=== PATIENT | female | born 1950 | race Caucasian/White ===

== ENCOUNTER → 2017-03-13 | Outpatient (CLI) | payer BC, MEDICARE, OTHER ==
[~2017-03-13] MED LIST: ACET-1966 PO; ALBU2.5V36 IH; AMA100 PO; AMLO-1 PO; AMLO-99 PO; AMOX-559 PO; ANTI-HYPERTENSIVE; ASPI81TA94 PO; BISA10SU RC; CEPH500C24 PO; CLON1PAT20 TOP; CLON1PAT23 TOP; DIPH0.5D12 IM; DOC100 PO; DOCU-416 PO; FLU IM; FLU180SY9 IM; FUR20 PO; FURO-45 PO; FURO20TA19 PO; GUALA600 PO; INSU100V24 SQ; IRO150 PO; LEV125 PO; LEVO-85 PO; LEVO137T23 PO; LEVO150T78 PO; LEVO25TA56 PO; LEVO25TA57 PO; LISI-368 PO; LISI20TA29 PO; METF-1 PO; METF-410 PO; METO-1 PO; METO25TA23 PO; METO50TA19 PO; MODA200T39 PO; MOM PO; MULT-885 PO; NYST15PO4 TP; PAN40 PO; PNEU0.5D3 IM; POLY17PO25 PO; POTA10CA61 PO; POTA20TA85 PO; POTT20 PO; SPIR25TA78 PO; SULF-198 PO; TRAM-420 PO; ZOS3.375P IV; [UNRECOGNIZED DRUG - CODE] IV; [UNRECOGNIZED DRUG - OTHER]
== END ==
LOC: LAB 15:47
PROVIDERS: ATTEND Internal Medicine
DX: I10 Essential (primary) hypertension (principal); E11.40 Type 2 diabetes mellitus with diabetic neuropathy, unspecified; E89.0 Postprocedural hypothyroidism
CPT/HCPCS: 36415; 82040; 82247; 82310; 82374; 82435; 82565; 82947; 83036; 84075; 84132; 84155; 84295; 84443; 84450; 84460; 84520

== ENCOUNTER → 2017-03-13 | Outpatient (CLI) | payer BC, MEDICARE, OTHER | LOC: LAB 15:35 | PROVIDERS: ATTEND Internal Medicine | DX: Z02.9 Encounter for administrative examinations, unspecified (principal) ==

== ENCOUNTER → 2017-07-18 | Outpatient (CLI) | payer BC, MEDICARE, OTHER ==
[~2017-07-18] MED LIST changes: -METF-410 PO; +METF-411 PO; +PNEI IJ
[2017-07-18 12:31] LABS: PLATELET COUNT, AUTOMATED 301 K/uL (150-450)
--- NOTE | 2017-07-18 13:03 | RADIOLOGY IMAGING REPORT ---
FACILITY: [facility] [place] PATIENT NAME: Etelvina Salazar : 1950 MR: [id number] V: [id number] EXAM DATE: ORDERING PHYSICIAN: RELL STONE TECHNOLOGIST: Location: [facility] - [place] Patient: Etelvina Salazar : 1950 Visit/Account:[id number] Date of Sevice: 07/18/2017 FOOT 3 VIEW RIGHT Indication: cellulitis Comparison: None. Findings: There is generalized osteopenia. The phalanges, metatarsal, and tarsal bones are intact. Soft tissues are normal. IMPRESSION: 1. No evidence of fracture or osteomyelitis. 2. Generalized osteopenia. Report Dictated By: Jaden Henry at 07/18/2017 12:59 PM Report E-Signed By: Jaden Henry at 07/18/2017 1:00 PM WSN:[email or web address]
== END ==
LOC: LAB 12:00
PROVIDERS: ATTEND Internal Medicine
DX: E78.5 Hyperlipidemia, unspecified (principal); I10 Essential (primary) hypertension; E11.40 Type 2 diabetes mellitus with diabetic neuropathy, unspecified; E03.9 Hypothyroidism, unspecified; M85.871 Other specified disorders of bone density and structure, right ankle and foot
CPT/HCPCS: 36415; 82040; 82247; 82310; 82374; 82435; 82465; 82565; 82947; 83036; 83718; 84075; 84132; 84155; 84295; 84443; 84450; 84460; 84478; 84520; 85025; 85651; 86140

== ENCOUNTER 2017-09-29 08:05 | Inpatient (IN) | payer BC, MEDICARE, OTHER ==
[~2017-09-29] VITALS: Ht 175.3 cm; Wt 127.0 kg
[2017-09-29] VITALS (40 sets, daily range): BP systolic 60–139; BP diastolic 40–111
[~2017-09-29 08:05] MED LIST changes: -LEVO750T27 PO; -MAGN400C PO; -OXYGENHOME INH; -SULF1TAB24 PO
[2017-09-29] MEDS ORDERED: NS(*) 0.9% 1000 ML BAG 1,000 ML IV ONE (08:25)
[2017-09-29] MEDS ORDERED: NS 0.9% IV ONE (08:30)
[2017-09-29 08:39] LABS: PLATELET COUNT, AUTOMATED 221 K/uL (150-450)
[2017-09-29 08:42] LABS: INR 1.08
--- NOTE | 2017-09-29 08:54 | ER Report ---
History and Physical Time Seen By MD: 08:30 Hx. of Stated Complaint: EMS STATES POSSIBLE STROKE AND HEART ATTACK HPI/ROS CHIEF COMPLAINT: altered mental status HISTORY OF PRESENT ILLNESS: Per and ems; pt was at baseline last night; at 0600 noted she was confused and less responsive. At 0700 he returned home from work and found that she appeared worse, and called ems. Per ems, but was hypotensive, tachycardic, complained of chest pain> EKG showed LBBB. Upon arrival, pt is without clear c/o as she is altered. Pt able to answer simple questions and denies cp, lopez, sob. REVIEW OF SYSTEMS: Complete review of systems not obtained as pt is altered Allergies: Coded Allergies: No Known Drug Allergies (Verified , 09/29/17) Home Meds Active Scripts Metoprolol Succinate (METOPROLOL SUCCINATE) 50 Mg Tab.er.24h, 1 TAB PO QDAY, # 90 TAB 0 Refills Prov:RELL STONE MD 09/02/17 Levothyroxine Sodium (LEVOTHYROXINE SODIUM) 150 Mcg Tablet, 1 TAB PO QDAY, #30 TAB 5 Refills Prov:RELL STONE MD 07/16/17 Metformin Hcl (METFORMIN HCL) 500 Mg Tablet, 1 TAB PO BID, #360 TAB 3 Refills Prov:RELL STONE MD 06/04/17 Lisinopril (LISINOPRIL) 20 Mg Tablet, 1 TAB PO BID, #180 TAB 3 Refills Prov:RELL STONE MD 11/20/16 Spironolactone (SPIRONOLACTONE) 25 Mg Tablet, 1 TAB PO QAM, #90 TAB 4 Refills Prov:RELL STONE MD 09/14/16 Amlodipine Besylate (AMLODIPINE BESYLATE) 10 Mg Tablet, 1 TAB PO QDAY, #90 TAB 4 Refills Prov:RELL STONE MD 09/14/16 Reported Medications Multivitamin (DAILY VITAMIN) 1 Each Tablet, 1 TAB PO DAILY 03/10/14 Discontinued Scripts Cephalexin Monohydrate (CEPHALEXIN) 500 Mg Cap, 1 CAP PO QID, #40 CAP 0 Refills Prov:RELL STONE MD 07/25/17 Reviewed Nurses Notes: Yes Old Medical Records Reviewed: Yes Hx Smoking: No Smoking Status: Never Smoker Exposure to Second Hand Smoke?: Yes ( quit in 1999) Hx Substance Use Disorder: No Hx Alcohol Use: No Constitutional Vital Sign - Last 24 Hours 09/29/17 09/29/17 08:15 08:15 Temp 97.8 Pulse 130 Resp 19 B/P (MAP) 88/58 Pulse Ox 92 O2 Delivery Room Air O2 Flow Rate 4.0 Intake and Output 09/29/17 09/29/17 09/30/17 15:00 23:00 07:00 Output Total 70 ml Balance -70 ml Physical Exam General Appearance: Patient is awake and answers simple questions; able to give name and month, follows some commands. She is protecting her airway Eyes: Pupils equal and round no pallor or injection. ENT, Mouth: mucous membranes are dry and covered with film Respiratory: There are no retractions, lungs are clear to auscultation. Cardiovascular: tachycardia + murmur Gastrointestinal: Abdomen is soft and non tender, no masses, bowel sounds normal. Neurological: pt follows commands erratically. She is awake, nurse informaticist finger but does not open/close eyes. Face symmetric though cannot follow cn commands. RUE 5 /5, LUE 4/5 (per this is baseline). Pt moves toes but cannot cloth picker legs; appears to be baseline Skin: skin is dry with petechiae lle, feet caked with feces and cat hair. mild erythema on buttocks and caseous discharge around perineum. No clear cellulitis Musculoskeletal: Neck is supple non tender. Psych - not suicidal DIFFERENTIAL DIAGNOSIS: After history and physical exam differential diagnosis was considered for adult fever including but not limited to viral syndromes including influenza, urinary tract infection, pneumonia and sepsis.chest pain including but not limited to myocardial ischemia, pericarditis pulmonary embolus , chest wall pain, pleural inflammation and pulmonary infectious causes.altered mental status including but not limited to hypoglycemia, infectious process, electrolyte abnormality, head injury and intoxicants. Findings c/w septic shock Medical Decision Making Data Points Result Diagram: 09/29/1713 09/29/17 0813 Laboratory Hematology Test 09/29/17 08:13 09/29/17 09:10 09/29/17 09:21 Red Blood Count 5.68 M/uL (4.17-5.56) Mean Corpuscular Volume 82.5 fL (80.0-96.0) Mean Corpuscular Hemoglobin 27.6 pg (26.0-33.0) Mean Corpuscular Hemoglobin Concent 33.4 g/dL (32.0-36.0) Red Cell Distribution Width 15.3 % (11.5-14.5) Mean Platelet Volume 9.5 fL (7.2-11.1) Neutrophils (%) (Auto) 97.6 % (39.4-72.5) Lymphocytes (%) (Auto) 1.5 % (17.6-49.6) Monocytes (%) (Auto) 0.6 % (4.1-12.4) Eosinophils (%) (Auto) 0.0 % (0.4-6.7) Basophils (%) (Auto) 0.3 % (0.3-1.4) Nucleated RBC Relative Count (auto) 0.1 /100WBC Neutrophils # (Auto) 15.9 K/uL (2.0-7.4) Lymphocytes # (Auto) 0.3 K/uL (1.3-3.6) Monocytes # (Auto) 0.1 K/uL (0.3-1.0) Eosinophils # (Auto) 0.0 K/uL (0.0-0.5) Basophils # (Auto) 0.1 K/uL (0.0-0.1) Nucleated RBC Absolute Count (auto) 0.01 K/uL Prothrombin Time 14.0 seconds (12.0-14.4) Prothromb Time International Ratio 1.08 Activated Partial Thromboplast Time 28 seconds (23-35) Sodium Level 141 mmol/L (137-145) Potassium Level 4.7 mmol/L (3.5-5.0) Chloride Level 102 mmol/L (98-107) Carbon Dioxide Level 22 mmol/L (22-31) Blood Urea Nitrogen 41 mg/dl (7-18) Creatinine 2.10 mg/dl (0.52-1.04) Glomerular Filtration Rate Calc 23.4 Random Glucose 178 mg/dl (75-110) Calcium Level 9.6 mg/dl (8.4-10.2) Total Bilirubin 0.7 mg/dl (0.2-1.3) Aspartate Amino Transf (AST/SGOT) 28 U/L (0-35) Alanine Aminotransferase (ALT/SGPT) 18 U/L (0-56) Alkaline Phosphatase 81 U/L (0-126) Troponin I 0.058 ng/ml Total Protein 7.6 g/dl (6.3-8.2) Albumin 4.3 g/dl (3.5-5.0) Blood Gas Puncture Site Right radial Blood Gas Patient Temperature 97.8 DEGREES Arterial Blood pH 7.44 (7.35-7.45) Arterial Blood Partial Pressure CO2 < 25 mmHg (32-37) Arterial Blood Partial Pressure O2 64 mmHg (60-80) Arterial Blood HCO3 15 mmol/L (20-26) Arterial Blood Oxygen Saturation 94 % (92-100) Arterial Blood Base Excess -9.0 mmol/L Isidoro Test Acceptable Oxygen Liters/Minute 4l Urine Color Yellow Urine Clarity Cloudy Urine pH 5.0 pH (4.8-9.5) Urine Specific [place] 1.014 Urine Protein 30 mg/dL (NEGATIVE) Urine Glucose (UA) Negative mg/dL (NEGATIVE) Urine Ketones Negative mg/dL (NEGATIVE) Urine Blood Moderate (NEGATIVE) Urine Nitrite Negative (NEGATIVE) Urine Bilirubin Negative (NEGATIVE) Urine Urobilinogen Negative mg/dL (0.2-1.9) Urine Leukocyte Esterase Large (NEGATIVE) Urine RBC 30 /HPF (0-2/HPF) Urine WBC 192 /HPF (0-5/HPF) Urine WBC Clumps Many /HPF Urine Squamous Epithelial Cells None /LPF (NONE-FEW) Urine Bacteria Many /HPF (NONE-FEW) Urine Hyaline Casts Few /LPF (NONE-FEW) Urine Mucus Few /HPF (NONE-FEW) Urine Opiates Screen Negative Urine Barbiturates Screen Negative Ur Tricyclic Antidepressants Screen Negative Urine Phencyclidine Screen Negative Urine Amphetamines Screen Negative Urine Benzodiazepines Screen Negative Urine Cocaine Screen Negative Urine Cannabinoids Screen Negative Chemistry Test 09/29/17 08:13 09/29/17 09:10 09/29/17 09:21 White Blood Count 16.4 k/uL (4.5-11.0) Red Blood Count 5.68 M/uL (4.17-5.56) Hemoglobin 15.7 g/dL (12.0-16.0) Hematocrit 46.8 % (34.0-47.0) Mean Corpuscular Volume 82.5 fL (80.0-96.0) Mean Corpuscular Hemoglobin 27.6 pg (26.0-33.0) Mean Corpuscular Hemoglobin Concent 33.4 g/dL (32.0-36.0) Red Cell Distribution Width 15.3 % (11.5-14.5) Platelet Count 221 K/uL (150-450) Mean Platelet Volume 9.5 fL (7.2-11.1) Neutrophils (%) (Auto) 97.6 % (39.4-72.5) Lymphocytes (%) (Auto) 1.5 % (17.6-49.6) Monocytes (%) (Auto) 0.6 % (4.1-12.4) Eosinophils (%) (Auto) 0.0 % (0.4-6.7) Basophils (%) (Auto) 0.3 % (0.3-1.4) Nucleated RBC Relative Count (auto) 0.1 /100WBC Neutrophils # (Auto) 15.9 K/uL (2.0-7.4) Lymphocytes # (Auto) 0.3 K/uL (1.3-3.6) Monocytes # (Auto) 0.1 K/uL (0.3-1.0) Eosinophils # (Auto) 0.0 K/uL (0.0-0.5) Basophils # (Auto) 0.1 K/uL (0.0-0.1) Nucleated RBC Absolute Count (auto) 0.01 K/uL Prothrombin Time 14.0 seconds (12.0-14.4) Prothromb Time International Ratio 1.08 Activated Partial Thromboplast Time 28 seconds (23-35) Glomerular Filtration Rate Calc 23.4 Calcium Level 9.6 mg/dl (8.4-10.2) Total Bilirubin 0.7 mg/dl (0.2-1.3) Aspartate Amino Transf (AST/SGOT) 28 U/L (0-35) Alanine Aminotransferase (ALT/SGPT) 18 U/L (0-56) Alkaline Phosphatase 81 U/L (0-126) Troponin I 0.058 ng/ml Total Protein 7.6 g/dl (6.3-8.2) Albumin 4.3 g/dl (3.5-5.0) Blood Gas Puncture Site Right radial Blood Gas Patient Temperature 97.8 DEGREES Arterial Blood pH 7.44 (7.35-7.45) Arterial Blood Partial Pressure CO2 < 25 mmHg (32-37) Arterial Blood Partial Pressure O2 64 mmHg (60-80) Arterial Blood HCO3 15 mmol/L (20-26) Arterial Blood Oxygen Saturation 94 % (92-100) Arterial Blood Base Excess -9.0 mmol/L Isidoro Test Acceptable Oxygen Liters/Minute 4l Urine Color Yellow Urine Clarity Cloudy Urine pH 5.0 pH (4.8-9.5) Urine Specific [place]hill 1.014 Urine Protein 30 mg/dL (NEGATIVE) Urine Glucose (UA) Negative mg/dL (NEGATIVE) Urine Ketones Negative mg/dL (NEGATIVE) Urine Blood Moderate (NEGATIVE) Urine Nitrite Negative (NEGATIVE) Urine Bilirubin Negative (NEGATIVE) Urine Urobilinogen Negative mg/dL (0.2-1.9) Urine Leukocyte Esterase Large (NEGATIVE) Urine RBC 30 /HPF (0-2/HPF) Urine WBC 192 /HPF (0-5/HPF) Urine WBC Clumps Many /HPF Urine Squamous Epithelial Cells None /LPF (NONE-FEW) Urine Bacteria Many /HPF (NONE-FEW) Urine Hyaline Casts Few /LPF (NONE-FEW) Urine Mucus Few /HPF (NONE-FEW) Urine Opiates Screen Negative Urine Barbiturates Screen Negative Ur Tricyclic Antidepressants Screen Negative Urine Phencyclidine Screen Negative Urine Amphetamines Screen Negative Urine Benzodiazepines Screen Negative Urine Cocaine Screen Negative Urine Cannabinoids Screen Negative Coagulation Test 09/29/17 08:13 Prothrombin Time 14.0 seconds Prothromb Time International Ratio 1.08 Activated Partial Thromboplast Time 28 seconds Toxicology Test 09/29/17 09:21 Urine Opiates Screen Negative Urine Barbiturates Screen Negative Ur Tricyclic Antidepressants Screen Negative Urine Phencyclidine Screen Negative Urine Amphetamines Screen Negative Urine Benzodiazepines Screen Negative Urine Cocaine Screen Negative Urine Cannabinoids Screen Negative Urinalysis Test 09/29/17 09:21 Urine Color Yellow Urine Clarity Cloudy Urine pH 5.0 pH (4.8-9.5) Urine Specific [place]hill 1.014 Urine Protein 30 mg/dL (NEGATIVE) Urine Glucose (UA) Negative mg/dL (NEGATIVE) Urine Ketones Negative mg/dL (NEGATIVE) Urine Blood Moderate (NEGATIVE) Urine Nitrite Negative (NEGATIVE) Urine Bilirubin Negative (NEGATIVE) Urine Urobilinogen Negative mg/dL (0.2-1.9) Urine Leukocyte Esterase Large (NEGATIVE) Urine RBC 30 /HPF (0-2/HPF) Urine WBC 192 /HPF (0-5/HPF) Urine WBC Clumps Many /HPF Urine Squamous Epithelial Cells None /LPF (NONE-FEW) Urine Bacteria Many /HPF (NONE-FEW) Urine Hyaline Casts Few /LPF (NONE-FEW) Urine Mucus Few /HPF (NONE-FEW) Microbiology Microbiology Date/Time Source Procedure Growth Status 09/29/17 09:04 Blood Peripheral Draw Blood Culture - Preliminary NO GROWTH SO FAR, SET LATE. REINCUBATED Resulted 09/29/17 08:27 Blood Peripheral Draw Blood Culture - Preliminary NO GROWTH SO FAR, SET LATE. REINCUBATED Resulted EKG/Imaging EKG Interpretation 12 lead EKG: Rhythm: sinus tachycardia [place]: left QRS: widened; lbbb ST segments: c/w lbbb; not dynamic and neg sgarbossa [ ] Monitor Interpretation: Sinus Tachycardia Imaging X-ray: [location] was obtained. I viewed the images myself on the PACS system. My interpretation of the images is: []. [The radiologist interpretation had no clinically significant variation from this interpretation]. ED Course/Re-evaluation ED Course Pt initially tachycardic, hypotensive; begins to respond with initial fluid bolus; 30cc/kg ordered. Pt with increasing alertness after first liter. Septic shock most likely; note that trop is elevated but given renal insufficiency and baseline lbbb without sgarbossa, this is more likely demand. CT head without e/ o ich; considered new cva but focal findings appear to be baseline. IV abx initiated; will admit to icu and consider pressors if pt again becomes hypotensive. Pt's pulse improves from 150's to 100's on 3rd liter; MAP 60 on reassessment, though with persistent borderline systolic hypotension. Admitted prior to 3 hr lactate level. Cefipime and vanc admin in ED. Of note, pt with minimal urine output in ED; likely sig dehydration, darrick. HD imprving on admission to ICU Decision to Disposition Date: Sep 29, 2017 Decision to Disposition Time: 09:22 Critical Care Time I spent a total of 65 minutes of critical care time in obtaining history, performing a physical exam, bedside monitoring of interventions, collecting and interpreting tests and discussion with consultants but not including time spent performing procedures. Depart Departure Latest Vital Signs Vital Signs Date Time Temp Pulse Resp B/P (MAP) Pulse Ox O2 Delivery O2 Flow Rate FiO2 09/29/17 08:15 4.0 09/29/17 08:15 97.8 130 19 88/58 92 Room Air Impression: Primary Impression: Septic shock Additional Impression: Altered mental status Condition: Critical Disposition: Admitted from ER Referrals: RELL STONE MD (PCP) Problem Qualifiers Additional Impression: Altered mental status Altered mental status type: delirium Qualified Codes: R41.0 - Disorientation , unspecified NATASHA GONZALEZ MD Sep 29, 2017 08:54
[2017-09-29] MEDS ORDERED: CEFEPIME HCL 2 GM VIAL 2 GM in NS(*) 0.9% 100 ML ADDVANT BAG 100 ML IVPB ONE (09:00)
[2017-09-29] MEDS ORDERED: VANCOMYCIN 1 GM VIAL IV ONE (09:00)
--- NOTE | 2017-09-29 09:35 | RADIOLOGY IMAGING REPORT ---
FACILITY: [facility] [place] PATIENT NAME: Etelvina Salazar : 1950 MR: [id number] V: [id number] EXAM DATE: ORDERING PHYSICIAN: NATASHA GONZALEZ TECHNOLOGIST: Location: [facility] [place] Patient: Etelvina Salazar : 1950 Visit/Account:[id number] Date of Sevice: 09/29/2017 CHEST SINGLE AP HISTORY: chest pain COMPARISON: 01/25/2012 FINDINGS: Cardiomediastinal contours: Mildly enlarged but unchanged. Lungs and pleura: Mild bronchovascular prominence without overt edema. Bones/soft tissues: Normal Other findings: None significant IMPRESSION: 1. Mild bronchovascular prominence without overt edema or consolidation. Report Dictated By: Bill Alegre MD at 09/29/2017 9:30 AM Report E-Signed By: Bill Alegre MD at 09/29/2017 9:31 AM WSN:[id number]
--- NOTE | 2017-09-29 09:41 | RADIOLOGY IMAGING REPORT ---
FACILITY: [facility] - [place] PATIENT NAME: Etelvina Salazar : 1950 MR: [id number] V: [id number] EXAM DATE: ORDERING PHYSICIAN: NATASHA GONZALEZ TECHNOLOGIST: Location: [facility] Patient: Etelvina Salazar : 1950 Visit/Account:[id number] Date of Sevice: 09/29/2017 HEAD W/O CONTRAST HISTORY: altered mental status COMPARISON STUDIES: Head CT 10/11/2012 TECHNIQUE: Contiguous axial images were obtained from the skull base to the vertex. One of the Cook Taste Eat dose optimization techniques was utilized in the performance of this exam: automated exposure co ntrol; adjustment of the mA and/or kv according to patient size; or use of iterative reconstruction t echnique. Specific details can be referenced in the facility's radiology CT exam operational policy. FINDINGS: There is motion on the initial images with images repeated at the convexity. Hemorrhage: Negative Ventricles / sulci / fissures: Negative Masses / midline shift: Negative White matter: Extensive periventricular low-attenuation, mildly advanced. Right basal ganglia lacunar infarct measures CSF attenuation. Foster-white differentiation: Negative Vessels: Extensive calcification of the major intracranial vessels at the skull base as well as the r ight MCA distribution, little changed. Extra-axial spaces: Negative Bones/skull base: Negative Visualized mastoid air cells / paranasal sinuses: Negative Scalp and soft tissues: Negative. Other findings: None significant IMPRESSION: 1. Advancing extensive periventricular low-attenuation likely secondary to small vessel disease. 2. Chronic right basal ganglial lacunar infarct. 3. Extensive calcification of the major intracranial vessels at the skull base and right MCA distribu tion, little changed. Report Dictated By: Bill Alegre MD at 09/29/2017 9:32 AM Report E-Signed By: Bill Alegre MD at 09/29/2017 9:38 AM WSN:[id number]
--- NOTE | 2017-09-29 09:51 | EKG ---
FACILITY: [facility] [place]IENT NAME: SHYAM ROBERT : [id number] MR: [id number] V: [id number] EXAM DATE: ORDERING PHYSICIAN: NATASHA GONZALEZ TECHNOLOGIST: Test Reason : Blood Pressure : / mmHG Vent. Rate : 135 BPM Atrial Rate : 136 BPM P-R Int : 000 ms QRS Dur : 134 ms QT Int : 368 ms P-R-T Axes : 000 -56 103 degrees QTc Int : 552 ms Sinus tachycardia with Possible premature atrial complexes with aberrant conduction Left axis deviation Left bundle branch block Abnormal ECG When compared with ECG of 11-OCT-2012 16:57, Sinus rhythm has replaced Junctional rhythm Vent. rate has increased BY 61 BPM Left bundle branch block is now present Confirmed by EROS PRICE ([id number]) on 09/29/2017 9:27:45 PM Referred By: Confirmed By:EROS PRICE
[2017-09-29] MEDS ORDERED: VANCOMYCIN(*) 1 GM VIAL 2 GM in NS(*) 0.9% 250 ML BAG 250 ML IVPB ONE (10:10)
[2017-09-29] MEDS ORDERED: ACETAMINOPHEN 325 MG TAB PO PRN (12:00)
[2017-09-29] MEDS ORDERED: INFLUENZA VIRUS VAC 0.5 ML SYR IM ONLY ONE (12:00)
--- NOTE | 2017-09-29 13:32 | Medical Nutrition Therapy ---
Nutrition Anthropometrics Height (Inches): 65 Weight (Pounds): 287 Weight (Calculated Kilograms): 130.408 Peña Nutrition Score: Peña Nutrition Risk Score: Dietary Referral Nutrition Risk Factors: Nutrition Risk Comment: Physical Findings Physical Appearance: Not able to calculate d/t lack of HT Skin Appearance Skin Appearance: Edema Edema Location Modifier: Both Edema Location: Lower Extremity Type of Edema: Degree of Edema: 2+ Gastrointestinal Symptoms GI Symtoms: Tube Present: Bowel Sounds: Recent Bowel Pattern: Stool Characteristics: Nutrition/Food History No Significant Nutr. HX Nutritional Diagnosis Nutritional Risk Acuity 2: Sepsis Nutritional Risk Acuity 3: Morbid Obesity Past Medical History: T2DM. HTN, Hypothyroid, Depression Nutritional Acuity: 2-Moderate Nutrition Diagnosis: Over-weight/Obesity Nutrition Etiology: Psychological Issues, Physiological Causes Nutrition Problem/Etiology/Sym: Overweight/Obesity related to Physical inactivity, depression, hypothryroid AEB current wt ot 130.408 Kg. Energy Requirement: 2074 (Sarkar Haskins Adj REE X 1.5) Protein Requirement: 57 (IBW Kg X 1.0) Fluid Requirement: 2074 Nutrition Intervention: Cont diet as ordered, Check glucose, Obtain Height and Weight Nutrition Monitoring & Eval Nutrition Goals: Eat 50-100% Meal RD Patient Assessment Time: [address] Assessment Type: RD Assessment Patient Nutrition Acuity: 2-Moderate Follow Up Date: Oct 01, 2017 Nutritional Comment: 09/29 Pt admitted for altered mental status and sepic shock. WBC 16.4, Lactate 4.3, Glu 178, High BUN/CREAT. Lispro SSI. Not able to evaluate wt status d/t lack of HT, however WT of 130.408 KG probably indicates overwt/obesity. Receiving Diabetes diet with no reports of intake. Follow intake, labs, HT, etc. -RICO DUTTON Sep 29, 2017 13:32
[2017-09-29] MEDS: NS(*) 0.9% 1000 ML BAG 1,000 ML IV PRN ×2 (13:55→22:48)
--- NOTE | 2017-09-29 14:59 | History & Physical ---
History of Present Illness Chief Complaint Mental status change. History of Present Illness The patient is a 66 year old female with PMH significant for past hemorrhagic stroke, DM II and HTN who presents with mental status changes this am. The patient's states she was in her usual state of health yesterday. She has been seeing her PCP, Dr. Corrales, for management of infection in her right great toe, but that has not gotten any worse per the patient and her family. She has been taking Keflex for the R great toe infection. This am the patient was very weak and confused. She had a shaking chill at home. She usually is able to walk short distances with her walker. EMS was called and the patient could barely stand to transfer to a gurney. She was brought to [facility] ER and was hypotensive and tachycardic. She was felt to be septic and was given Cefepime, Vanco, and IV fluid resuscitation. Upon arrival to ICU, the patient's mental status is much improved. She states she has had burning with urination for several days. She complains of R flank pain and some R abdominal pain as well. The patient also notes she was bitten by her dog in her L lower leg recently when trying to break up a fight between dogs. That area is not painful, red or draining per her report. The patient's family notes she does not drink enough fluids and will only drink coffee. She last saw Dr. Corrales about a week ago but was not having urinary symptoms at that time. History Problems: (1) Hx of myocardial infarction Status: Resolved (2) Controlled type 2 diabetes mellitus with diabetic neuropathy, without long- term current use of insulin Status: Chronic (3) Edema Status: Chronic (4) Essential hypertension Status: Chronic (5) Obstructive sleep apnea Status: Chronic (6) Nontraumatic rupture of Achilles tendon Status: Resolved (7) Postsurgical hypothyroidism Status: Chronic (8) Personal history of malignant neoplasm of thyroid Status: Resolved (9) Morbid obesity Status: Chronic (10) Cellulitis of great toe, right Status: Chronic (11) Urinary tract infection Status: Acute (12) History of cerebral hemorrhage Status: Resolved Comment: CT 06/11 shows cerebral hemorrhage. Home Meds Active Scripts Metoprolol Succinate (METOPROLOL SUCCINATE) 50 Mg Tab.er.24h, 1 TAB PO QDAY, # 90 TAB 0 Refills Prov:RELL CORRALES MD 09/02/17 Levothyroxine Sodium (LEVOTHYROXINE SODIUM) 150 Mcg Tablet, 1 TAB PO QDAY, #30 TAB 5 Refills Prov:RELL CORRALES MD 07/16/17 Metformin Hcl (METFORMIN HCL) 500 Mg Tablet, 1 TAB PO BID, #360 TAB 3 Refills Prov:RELL CORRALES MD 06/04/17 Lisinopril (LISINOPRIL) 20 Mg Tablet, 1 TAB PO BID, #180 TAB 3 Refills Prov:RELL CORRALES MD 11/20/16 Spironolactone (SPIRONOLACTONE) 25 Mg Tablet, 1 TAB PO QAM, #90 TAB 4 Refills Prov:RELL CORRALES MD 09/14/16 Amlodipine Besylate (AMLODIPINE BESYLATE) 10 Mg Tablet, 1 TAB PO QDAY, #90 TAB 4 Refills Prov:RELL CORRALES MD 09/14/16 Reported Medications Multivitamin (DAILY VITAMIN) 1 Each Tablet, 1 TAB PO DAILY 03/10/14 Discontinued Scripts Cephalexin Monohydrate (CEPHALEXIN) 500 Mg Cap, 1 CAP PO QID, #40 CAP 0 Refills Prov:RELL CORRALES MD 07/25/17 Allergies: Coded Allergies: No Known Drug Allergies (Verified , 09/29/17) Patient History: FH: breast cancer FATHER, , Age:55 Maternal Grandmother, , Age:92 FH: coronary artery disease FATHER, , Age:55 FH: hypertension Paternal Grandmother FHx: diabetes mellitus Maternal Grandmother, , Age:92 Other Social/Family Hx The patient is and lives at home with her . She is retired and previously worked at the [employer]. Hx Smoking: No Smoking Status: Never Smoker Exposure to Second Hand Smoke?: Yes ( quit in 1999) Caffeine Intake: Coffee Caffeine/Cups Per Day: Daily Hx Alcohol Use: No Hx Substance Use Disorder: No History of IV Drug Use: No Review of Systems Constitutional: Chills Neurological: Confusion, Weakness, Other (Some difficulty with memory since stroke.) Eyes: No Vision Change ENT: No Hearing Loss Cardiovascular: No Chest Pain Respiratory: Cough, No Shortness of Breath Gastrointestinal: No Nausea, Abdominal Pain Genitourinary: Dysuria Psychiatric: Depression Exam Vital Signs Vital Signs Date Time Temp Pulse Resp B/P (MAP) Pulse Ox O2 Delivery O2 Flow Rate FiO2 09/29/17 13:15 95 28 111/61 (78) 90 Nasal Cannula 3.0 09/29/17 12:00 99.8 General Appearance: Alert, Awake, No Acute Distress Neuro: Other (Poor short term memory.) Eyes: PERRLA Cardiovascular: Regular Rate and Rhythm, Other (1+ edema bilaterally) Respiratory: Other (L basilar crackles, otherwise clear) GI: Other (Tender in the R mid to upper abdomen to palpation. ) Lymph: Cervical Nodes Benign Extremities: Warm, Perfused Integumentary: Scaly / Dry Skin, Other (R great toe and distal foot with scaling of skin, redness and great toe has dystrophic nail. R great toe is swollen. No obvious drainage visible. L lower leg with chronic venous stasis changes. Several wounds noted without redness or drainage. ) Psych: Appropriate Mood & Affect Medical Decision Making Data Points Result Diagram: 09/29/17 0809/29/17 0813 Item Value Date Time Blood Gas Puncture Site Right radial 09/29/17 0910 Blood Gas Patient Temperature 97.8 DEGREES 09/29/17 0910 Arterial Blood pH 7.44 09/29/17 0910 Arterial Blood Partial Pressure CO2 < 25 mmHg L 09/29/17 0910 Arterial Blood Partial Pressure O2 64 mmHg 09/29/17 0910 Arterial Blood HCO3 15 mmol/L L 09/29/17 0910 Arterial Blood Oxygen Saturation 94 % 09/29/17 0910 Arterial Blood Base Excess -9.0 mmol/L 09/29/17 0910 Isidoro Test Acceptable 09/29/17 0910 Oxygen Liters/Minute 4l 09/29/17 0910 Prothrombin Time 14.0 seconds 09/29/17 0813 Prothromb Time International Ratio 1.08 09/29/17 0813 Activated Partial Thromboplast Time 28 seconds 09/29/17 0813 Random Glucose 178 mg/dl H 09/29/17 0813 Calcium Level 9.6 mg/dl 09/29/17 0813 Total Bilirubin 0.7 mg/dl 09/29/17 0813 Aspartate Amino Transf (AST/SGOT) 28 U/L 09/29/17 0813 Alanine Aminotransferase (ALT/SGPT) 18 U/L 09/29/17 0813 Alkaline Phosphatase 81 U/L 09/29/17 0813 Troponin I 0.058 ng/ml 09/29/17 0813 Total Protein 7.6 g/dl 09/29/17 0813 Albumin 4.3 g/dl 09/29/17 0813 Lactate 6.4 mmol/L *H 09/29/17 0827 Lactate 4.3 mmol/L *H 09/29/17 1132 Urine Opiates Screen Negative 09/29/17920 Urine Barbiturates Screen Negative 09/29/17 09 Ur Tricyclic Antidepressants Screen Negative 09/29/17 09 Urine Phencyclidine Screen Negative 09/29/17920 Urine Amphetamines Screen Negative 09/29/17920 Urine Benzodiazepines Screen Negative 09/29/17920 Urine Cocaine Screen Negative 09/29/17920 Urine Cannabinoids Screen Negative 09/29/17920 Urine Color Yellow 09/29/17920 Urine Clarity Cloudy 09/29/17920 Urine pH 5.0 pH 09/29/17920 Urine Specific Hulbert 1.014 09/29/17920 Urine Protein 30 mg/dL 09/29/17920 Urine Glucose (UA) Negative mg/dL 09/29/17920 Urine Ketones Negative mg/dL 09/29/17920 Urine Blood Moderate 09/29/17920 Urine Nitrite Negative 09/29/17920 Urine Bilirubin Negative 09/29/17920 Urine Urobilinogen Negative mg/dL 09/29/17 09 Urine Leukocyte Esterase Large H 09/29/17920 Urine RBC 30 /HPF 09/29/17920 Urine WBC 192 /HPF 09/29/17920 Urine WBC Clumps Many /HPF 09/29/17 0921 Urine Squamous Epithelial Cells None /LPF 09/29/17 09 Urine Bacteria Many /HPF H 09/29/17920 Urine Hyaline Casts Few /LPF 09/29/17920 Urine Mucus Few /HPF 09/29/17920 EKG / Imaging EKG Interpretation FACILITY: [facility] [place] PATIENT NAME: SHYAM ROBERT : [id number] MR: [id number] V: [id number] EXAM DATE: ORDERING PHYSICIAN: NATASHA GONZALEZ TECHNOLOGIST: Test Reason : Blood Pressure : / mmHG Vent. Rate : 135 BPM Atrial Rate : 136 BPM P-R Int : 000 ms QRS Dur : 134 ms QT Int : 368 ms P-R-T Axes : 000 -56 103 degrees QTc Int : 552 ms Sinus tachycardia with Possible premature atrial complexes with aberrant conduction Left axis deviation Left bundle branch block Abnormal ECG When compared with ECG of 11-OCT-2012 16:57, Sinus rhythm has replaced Junctional rhythm Vent. rate has increased BY 61 BPM Left bundle branch block is now present Referred By: Confirmed By: 9 T: Imaging FACILITY: [facility] [place] PATIENT NAME: Shyam Robert : 1950 MR: [id number] V: [id number] EXAM DATE: [id number] ORDERING PHYSICIAN: NATASHA GONZALEZ TECHNOLOGIST: Location: [facility] Patient: Shyam Robert : 1950 Visit/Account:[id number] Date of Sevice: 09/29/2017 HEAD W/O CONTRAST HISTORY: altered mental status COMPARISON STUDIES: Head CT 10/11/2012 TECHNIQUE: Contiguous axial images were obtained from the skull base to the vertex. One of the following dose optimization techniques was utilized in the performance of this exam: automated exposure control; adjustment of the mA and/ or kv according to patient size; or use of iterative reconstruction technique. Specific details can be referenced in the facility's radiology CT exam operational policy. FINDINGS: There is motion on the initial images with images repeated at the convexity. Hemorrhage: Negative Ventricles / sulci / fissures: Negative Masses / midline shift: Negative White matter: Extensive periventricular low-attenuation, mildly advanced. Right basal ganglia lacunar infarct measures CSF attenuation. Foster-white differentiation: Negative Vessels: Extensive calcification of the major intracranial vessels at the skull base as well as the right MCA distribution, little changed. Extra-axial spaces: Negative Bones/skull base: Negative Visualized mastoid air cells / paranasal sinuses: Negative Scalp and soft tissues: Negative. Other findings: None significant IMPRESSION: 1. Advancing extensive periventricular low-attenuation likely secondary to small vessel disease. 2. Chronic right basal ganglial lacunar infarct. 3. Extensive calcification of the major intracranial vessels at the skull base and right MCA distribution, little changed. Report Dictated By: Bill Alegre MD at 09/29/2017 9:32 AM Report E-Signed By: Bill Alegre MD at 09/29/2017 9:38 AM WSN:[id number] FACILITY: [facility] PATIENT NAME: Shyam Robert : 1950 MR: [id number] V: [id number] EXAM DATE: [id number] ORDERING PHYSICIAN: NATASHA GONZALEZ TECHNOLOGIST: Location: [facility] Patient: Shyam Robert : 1950 Visit/Account:[id number] Date of Sevice: 09/29/2017 CHEST SINGLE AP HISTORY: chest pain COMPARISON: 01/25/2012 FINDINGS: Cardiomediastinal contours: Mildly enlarged but unchanged. Lungs and pleura: Mild bronchovascular prominence without overt edema. Bones/soft tissues: Normal Other findings: None significant IMPRESSION: 1. Mild bronchovascular prominence without overt edema or consolidation. Report Dictated By: Bill Alegre MD at 09/29/2017 9:30 AM Report E-Signed By: Bill Alegre MD at 09/29/2017 9:31 AM WSN:[id number] Pre-Admit Course ED Medications Cefepime, Vanco, NS Medical Record Review: Yes Assessment and Plan Problems: (1) Septic shock Status: Acute Assessment & Plan: The patient was hypotensive, tachycardic and had an elevated lactate and mental status changes on presentation. She received a fluid bolus of 30ml/kg. Her repeat lactate improved but is still elevated. Will continue serial lactates. She received cefepime and vancomycin in the ER. These will be continued with renal dosing. Blood and urine cultures have been obtained. Her blood pressure has responded nicely to fluid resuscitation. Will continue IV fluids. (2) Urinary tract infection Status: Acute Assessment & Plan: UA shows pyuria and the patient has had dysuria and R flank pain as well as chills. Her last culture in 2012 grew Pseudomonas aeruginosa and Citrobacter freundii. Both were sensitive to cefepime at that time. She is currently on cefepime and vancomycin pending urine and blood culture results. (3) Cellulitis of great toe, right Status: Chronic Assessment & Plan: The patient has had a chronic infection in the R great toe since the beginning of the year. She had a foot x-ray in July that was negative for bony changes. She most recently has been on Keflex and is followed by Dr. Corrales. (4) Ulcer of other part of lower limb Status: Chronic Assessment & Plan: The patient has chronic venous stasis changes of the L lower leg. She has open wounds without redness or drainage currently. (5) History of cerebral hemorrhage Status: Resolved Assessment & Plan: The patient had a cerebral hemorrhage in June 2009. CT at that time showed "a large amount of intraventricular hemorrhage within the right lateral ventricle with extension into the left lateral ventricle as well as the third and fourth ventricles". The patient was transferred to [facility] at that time and was in a coma for several weeks. She then had extensive rehabilitation. 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 (6) Essential hypertension Status: Chronic Assessment & Plan: The patient takes lisinopril 20mg bid, amlodipine 10mg daily , metoprolol succinate 50mg daily and spironolactone 25mg daily at home. Will hold for now due to hypotension. (7) Controlled type 2 diabetes mellitus with diabetic neuropathy, without long- term current use of insulin Status: Chronic Assessment & Plan: The patient takes metformin 500mg po bid. Will hold for now and place on SSI level 2. Monitor glucoses AC/HS. (8) CAD (coronary artery disease) Status: Chronic Assessment & Plan: The patient has past history of [place]. Her most recent echo per the EMR was in 2012 and her EF was low normal at that time. She did have diastolic dysfunction, grade 2/4. Her initial troponin was in the equivocal range. Will repeat. Will hold her metoprolol for now and restart when able. She is not on anticoagulation due to history of massive cerebral hemorrhage in 2009. (9) Edema Status: Chronic Assessment & Plan: The patient takes spironolactone 25mg daily at home. Will hold for hypotension, dehydration. (10) Obstructive sleep apnea Status: Chronic Assessment & Plan: The patient states she wears O2 at HS. (11) Morbid obesity Status: Chronic Assessment & Plan: BMI is 42.4. Time Spent on Plan of Care: < 30 min Copies to: RELL CORRALES MD Venous Thromboembolism Antithrombotics Is Pt On Any Antithrombotics?: No Prophylaxis Tx Contraindicated Pharmacological Contraindicati: Medical Contraindication (Hx hemorrhagic CVA.) Exam Sepsis Risk: Severe Sepsis Risk Problem Qualifiers (1) Edema: Edema type: unspecified Qualified Codes: R60.9 - Edema, unspecified EROS VARELA MD Sep 29, 2017 14:59
[2017-09-29] MEDS ORDERED: FUROSEMIDE 20 MG/2 ML VIAL IVP ONE ×2 (17:25)
[2017-09-29] MEDS ORDERED: ALBUTEROL 2.5 MG/3 ML NEB NEB ONE (17:30)
[2017-09-29] MEDS ORDERED: ACETAMINOPHEN(*)1000 MG/100 ML 100 ML IVPB PRN (17:40)
[2017-09-29] MEDS ORDERED: LEVOFLOXACIN/D5W 750 MG/150 ML 150 ML IVPB SCH (17:45)
--- NOTE | 2017-09-29 17:57 | RADIOLOGY IMAGING REPORT ---
FACILITY: [facility] PATIENT NAME: Etelvina Salazar : 1950 MR: [id number] V: [id number] EXAM DATE: ORDERING PHYSICIAN: EROS VARELA TECHNOLOGIST: Location: [facility] Patient: Etelvina Salazar : 1950 Visit/Account:[id number] Date of Sevice: 09/29/2017 CHEST SINGLE AP Indication: Increased respiratory difficulty. Comparison: Radiograph from same date at 8:27 AM Findings: Heart size within normal limits. Calcification within the aortic knob. There is no focal infiltrate or lobar consolidation. Redemonstration of bronchovascular prominence without overt edema. No pneumothorax or pleural effusion. IMPRESSION: 1. No acute cardiopulmonary process. 2. Grossly unchanged bronchovascular prominence without overt edema. Report Dictated By: Noe Ortiz MD at 09/29/2017 5:51 PM Report E-Signed By: Noe Ortiz MD at 09/29/2017 5:52 PM WSN:[id number]
--- NOTE | 2017-09-29 18:02 | Miscellaneous Provider Note ---
Miscellaneous Provider Note Note Called to see patient with increased respirations and confusion. Patient is now tachycardic in the 130s. Also tachypneic into the 40s. BP 128/102. She is awake but does not answer questions. Rectal temperature measures over 106. Will give IV Tylenol and pack with ice. Dr. Espinal will place a central line for better IV access. She has received cefepime and Vancomycin IV today. Will add Levaquin as well. She has a history of Pseudomonas UTI in the past. CXR shows mild vascular prominence. She has received over 3 liters of fluid. Will give a small dose of Lasix as well. EROS VARELA MD Sep 29, 2017 18:02
--- NOTE | 2017-09-29 18:31 | EKG ---
FACILITY: [facility] [place] PATIENT NAME: SHYAM ROBERT : [id number] MR: [id number] V: [id number] EXAM DATE: ORDERING PHYSICIAN: EROS VARELA TECHNOLOGIST: Test Reason : Blood Pressure : / mmHG Vent. Rate : 137 BPM Atrial Rate : 131 BPM P-R Int : 000 ms QRS Dur : 130 ms QT Int : 314 ms P-R-T Axes : 000 -11 121 degrees QTc Int : 474 ms Sinus tachycardia Left bundle branch block Left axis deviation Abnormal ECG No previous ECGs available Confirmed by EROS PRICE ([id number]) on 09/29/2017 9:25:44 PM Referred By: Confirmed By:EROS PRICE
[2017-09-29] MEDS: NS(*) 0.9% 500 ML BAG 500 ML IV PRN ×2 (18:39→18:45)
--- NOTE | 2017-09-29 18:47 | General Surgery Consultation ---
History of Present Illness Requesting Physician Dr. Samantha Bergeron Reason for Consult Urosepsis with septic shock and impending MODS, need for central venous access and arterial line. Chief Complaint AMS and high fever History of Present Illness This 66 year old female was admitted today with urosepsis and has developed respiratory failure and oliguria. History Problems: (1) Controlled type 2 diabetes mellitus with diabetic neuropathy, without long- term current use of insulin Status: Chronic (2) Essential hypertension Status: Chronic (3) Obstructive sleep apnea Status: Chronic (4) Postsurgical hypothyroidism Status: Chronic (5) Morbid obesity Status: Chronic (6) Unspecified cerebral artery occlusion with cerebral infarction Status: Acute (7) History of cerebral hemorrhage Status: Resolved Home Meds Active Scripts Metoprolol Succinate (METOPROLOL SUCCINATE) 50 Mg Tab.er.24h, 1 TAB PO QDAY, # 90 TAB 0 Refills Prov:RELL STONE MD 09/02/17 Levothyroxine Sodium (LEVOTHYROXINE SODIUM) 150 Mcg Tablet, 1 TAB PO QDAY, #30 TAB 5 Refills Prov:RELL STONE MD 07/16/17 Metformin Hcl (METFORMIN HCL) 500 Mg Tablet, 1 TAB PO BID, #360 TAB 3 Refills Prov:RELL STONE MD 06/04/17 Lisinopril (LISINOPRIL) 20 Mg Tablet, 1 TAB PO BID, #180 TAB 3 Refills Prov:RELL STONE MD 11/20/16 Spironolactone (SPIRONOLACTONE) 25 Mg Tablet, 1 TAB PO QAM, #90 TAB 4 Refills Prov:RELL STONE MD 09/14/16 Amlodipine Besylate (AMLODIPINE BESYLATE) 10 Mg Tablet, 1 TAB PO QDAY, #90 TAB 4 Refills Prov:RELL STONE MD 09/14/16 Reported Medications Multivitamin (DAILY VITAMIN) 1 Each Tablet, 1 TAB PO DAILY 03/10/14 Discontinued Scripts Cephalexin Monohydrate (CEPHALEXIN) 500 Mg Cap, 1 CAP PO QID, #40 CAP 0 Refills Prov:RELL STONE MD 07/25/17 Allergies: Coded Allergies: No Known Drug Allergies (Verified , 09/29/17) Family History: FH: breast cancer FATHER, , Age:55 Maternal Grandmother, , Age:92 FH: coronary artery disease FATHER, , Age:55 FH: hypertension Paternal Grandmother FHx: diabetes mellitus Maternal Grandmother, , Age:92 Review of Systems Other Unable to obtain due to obtundation Exam Vital Signs Vital Signs Date Time Temp Pulse Resp B/P (MAP) Pulse Ox O2 Delivery O2 Flow Rate FiO2 09/29/17 18:19 125 36 09/29/17 18:10 93 Nasal Cannula 3.0 09/29/17 16:00 121/72 (88) 09/29/17 15:00 100.5 General Appearance: Other (obtunded, obese female tachypneic and tachycardic) Neuro: No Gross deficits (GCS 11) ENT: Moist Mucous Membranes Cardiovascular: No JVD, Other (Regular rhythm, tachycardic at 130) Respiratory: Other (clear but decreased in both bases) GI: Abd Soft and Non-Tender Extremities: Other (stasis dermatitis and chronic edema) Medical Decision Making Data Points Result Diagram: 09/29/17 0813 09/29/17 0813 Venous Thromboembolism Antithrombotics Is Pt On Any Antithrombotics?: No ELISA GUIDO MD Sep 29, 2017 18:47
--- NOTE | 2017-09-29 18:49 | Procedure Note ---
ART Line Procedure Note Consent Signed: No ART Line Indication: Hemodynamic Monitoring ART Line Lumen: Single Line Procedure: Chlorhexidine Prep, Sterile Drapes Applied Anesthesia Used: 1% Lidocaine CC's of Anesthesia: 1 Complications: None Comment Left radial arterial line single puncture. Good wave form. Secured with Tegaderm and tape. ELISA GUIDO MD Sep 29, 2017 18:49
--- NOTE | 2017-09-29 18:50 | Procedure Note ---
Central Line Procedure Note Consent Signed: No Central Line Lumen: Triple Central Line Procedure: Chlorhexidine Prep, Sterile Drapes Applied Central Line Position: L Subclavian Anesthesia Used: 1% Lidocaine CC's of Anesthesia: 3 Complications: None Central Line Post Position: Sutured, Confirmed Blood Return, Position Confirmed w/CXR ELISA GUIDO MD Sep 29, 2017 18:50
--- NOTE | 2017-09-29 18:56 | RADIOLOGY IMAGING REPORT ---
[place] [facility] [place] Etelvina Salazar : 1950 MR: [id number] V: [id number] EXAM DATE: ORDERING PHYSICIAN: ELISA GUIDO TECHNOLOGIST: Location: [facility] [place] Patient: Etelvina Salazar : 1950 Visit/Account:[id number] Date of Sevice: 09/29/2017 Examination: CHEST SINGLE AP Comparison: Same day and earlier. History: Central line placement Findings: Left subclavian central venous catheter with the tip in the region of the superior cavoatri al junction. Cardiac and hilar contour is mildly enlarged but unchanged. Pulmonary vascular congestio n but no pulmonary edema. No new or enlarging consolidation. No pneumothorax or effusion. Osseous str uctures are intact. IMPRESSION: Left subclavian central venous catheter. No pneumothorax. Report Dictated By: Jonathan Elkins MD at 09/29/2017 6:48 PM Report E-Signed By: Jonathan Elkins MD at 09/29/2017 6:53 PM WSN:[id number]
[2017-09-29] MEDS ORDERED: NOREPINEPH BITAR 4 MG/4 ML AMP ONE (18:58)
[2017-09-29] MEDS ORDERED: LEVOPHED KIT (*) 1 IVSOL 0 KIT IV ONE (18:59)
[2017-09-29] MEDS ORDERED: metroNIDAZOLE* 500MG/100ML BAG 100 ML IVPB SCH (20:15)
[2017-09-29] MEDS: LEVOFLOXACIN/D5W 750 MG/150 ML 150 ML IVPB SCH (20:19)
[2017-09-29] MEDS: NOREPINE BITAR* 4 MG/4 ML AMP 8 MG in D5W(*) 500 ML BAG 492 ML IV PRN (20:22)
--- NOTE | 2017-09-29 20:29 | Miscellaneous Provider Note ---
Miscellaneous Provider Note Note Patient with drop in blood pressure. CVP 2. Fluid bolus given. Levaphed added. 2 anaerobic blood cultures growing a gram positive coccobacillus. Flagyl added. Will CT abdomen/pelvis. EROS VARELA MD Sep 29, 2017 20:28
[2017-09-29] MEDS ORDERED: NS(*) 0.9% 100 ML BAG 100 ML ONE (21:31)
--- NOTE | 2017-09-29 21:45 | RADIOLOGY IMAGING REPORT ---
FACILITY: [facility] PATIENT NAME: Etelvina Salazar : 1950 MR: [id number] V: [id number] EXAM DATE: ORDERING PHYSICIAN: EROS VARELA TECHNOLOGIST: Location: [facility] Patient: Etelvina Salazar : 1950 Visit/Account:[id number] Date of Sevice: 09/29/2017 EXAMINATION: CT abdomen and pelvis without IV contrast HISTORY: Sepsis. Abdominal pain. TECHNIQUE: Axial CT images of the abdomen and pelvis were obtained without IV contrast, with color[place] l and sagittal 2D reconstructed images. One of the following dose optimization techniques was utilized in the performance of this exam: Autom ated exposure control; adjustment of the mA and/or kV according to the patient's size; or use of an i terative reconstruction technique. Specific details can be referenced in the facility's radiology C T exam operational policy. COMPARISON: None. FINDINGS: Evaluation of the solid and viscus parenchymal organs is limited without the benefit of IV contrast. Image quality is also degraded by patient motion artifact. Liver: Negative. Gallbladder and bile ducts: Cholelithiasis, with small stones layering in the dependent gallbladder. No bile duct dilatation. Spleen: Negative. Pancreas: Negative. Adrenal glands: Negative. Kidneys: Moderate hydronephrosis of the right kidney, with dilatation of the right ureter. There is a 4 mm stone present in the distal right ureter at the UVJ. Additional nonobstructing 8 mm calculus i n the lower pole of the right kidney. Perinephric stranding surrounds the right kidney. Small nonobstructing left renal calculus measuring 2 mm. The left kidney is negative for hydronephros is. Bowel and peritoneum: The small bowel and colon are normal in caliber. No bowel obstruction. No free fluid or free intraperitoneal air. Small hiatal hernia. Pelvic structures: The urinary bladder is decompressed, with Bah catheter in place. Lymph node assessment: Negative. Vessels: Moderate vascular calcifications. Normal caliber abdominal aorta. Musculoskeletal: Scattered degenerative changes throughout the spine. No acute osseous findings. Body wall: Small fat-containing umbilical hernia. Lung bases: Mild atelectasis in the lower lungs. IMPRESSION: 1. Moderate hydronephrosis the right kidney. There is a 4 mm calculus in the distal right ureter at t he UVJ. 2. Additional nonobstructing renal calculi in both kidneys. 3. No other acute intra-abdominal findings by noncontrast CT imaging. 4. Cholelithiasis. Report Dictated By: Dimas Way MD at 09/29/2017 9:21 PM Report E-Signed By: Dimas Way MD at 09/29/2017 9:41 PM WSN:[id number]
[2017-09-29] MEDS: CEFEPIME HCL 2 GM VIAL IVP SCH (21:52)
[2017-09-29] MEDS ORDERED: HYDROCORTISONE 100 MG/2 ML IVP ONE (22:05)
[2017-09-29] MEDS ORDERED: NS(*) 0.9% 1000 ML BAG 1,000 ML IV PRN (22:49)
[2017-09-29] MEDS: metroNIDAZOLE* 500MG/100ML BAG 100 ML IVPB SCH (23:48)
[2017-09-30] VITALS (90 sets, daily range): BP systolic 80–138; BP diastolic 43–104
[2017-09-30] MEDS: NOREPINE BITAR* 4 MG/4 ML AMP 8 MG in D5W(*) 500 ML BAG 492 ML IV PRN ×2 (01:44→06:42)
[2017-09-30 05:43] LABS: PLATELET COUNT, AUTOMATED 133 K/uL (150-450)
[2017-09-30] MEDS: metroNIDAZOLE* 500MG/100ML BAG 100 ML IVPB SCH (06:10)
[2017-09-30] MEDS ORDERED: NS(*) 0.9% 1000 ML BAG 1,000 ML IV PRN (06:34)
[2017-09-30] MEDS ORDERED: VANCOMYCIN(*) 1 GM VIAL 2 GM, VANCOMYCIN (*) 0.5 GM VIAL 0.5 GM in NS(*) 0.9% 500 ML BA... IVPB ONE ×2 (07:00→07:10)
[2017-09-30] MEDS ORDERED: PROPOFOL EMUL(*) 10MG/ML 20 ML 20 ML ONE (07:47)
[2017-09-30] MEDS ORDERED: ONDANSETRON 4 MG/2 ML VIAL ONE (07:47)
[2017-09-30] MEDS ORDERED: LIDOCAINE MPF 1% 5 ML VIAL ONE (07:47)
[2017-09-30] MEDS ORDERED: DEXAMETHASONE SOD 4 MG/ML VIAL ONE (07:47)
[2017-09-30] MEDS ORDERED: fentaNYL CITR 100 MCG/2 ML AMP ONE (07:47)
[2017-09-30] MEDS ORDERED: KETAMINE HCL 500 MG/10 ML VIAL ONE (07:49)
[2017-09-30] MEDS ORDERED: NORMOSOL R SOLN(*) 1000 ML BAG 1,000 ML IV PRN (07:50)
[2017-09-30] MEDS ORDERED: NS 0.9% 20 ML SDV 40 ML ONE (08:00)
[2017-09-30] MEDS ORDERED: IOPAMIDOL-200 50 ML VIAL IS ONE (08:07)
[2017-09-30] MEDS: PANTOPRAZOLE SOD 40 MG IV VIAL IVP SCH (08:18)
[2017-09-30] MEDS ORDERED: ENOXAPARIN 40 MG/0.4ML SYR SC SCH (09:00)
--- NOTE | 2017-09-30 10:34 | Hospitalist Progress Note ---
Subjective Progress Notes Subjective This patient was admitted for sepsis. She had increased fever and hypotension overnight. Patient Complains of: Cardiovascular: No: Chest Pain Respiratory: No: Shortness of Breath Physical Exam Vital Signs Date Time Temp Pulse Resp B/P (MAP) Pulse Ox O2 Delivery O2 Flow Rate FiO2 09/30/17 07:28 90 Nasal Cannula 3.0 09/30/17 06:45 98.2 91 38 124/73 (90) Neuro: No Gross deficits Eyes: PERRLA Cardiovascular: Regular Rate and Rhythm Respiratory: Clear to Auscultation GI: Soft and Non-Tender Extremities: No Edema Integumentary: No Cyanosis Result Diagram: 09/30/1752409/30/17 05 Item Value Date Time Lactate 2.7 mmol/L H 09/30/17 05 Item Value Date Time Gram Stain - Final Complete 09/30/17 0926 Kidney Urine Right Blood Culture - Final Resulted 09/29/17 0904 Blood Peripheral Draw Blood Culture - Final Resulted 09/29/17 0827 Blood Peripheral Draw Monitor Interpretation: Sinus Tachycardia Assessment and Plan Problems: (1) Urinary tract infection Status: Acute Assessment & Plan: Her urine was positive for large leukocytes and many bacteria. Her blood cultures are both showing growth of a gram positive coccobacillus. A urine culture is pending. (2) Obstructive uropathy Assessment & Plan: She was found to have multiple bilateral renal stones with an obstructing stone and hydronephrosis on the right. Dr. Colbert has taken her to the operating room to bypass the stone. (3) Septic shock Status: Acute Assessment & Plan: She has had a fever to 106 and hypotension overnight. Her lactate is also elevated. She has received both fluids and a norepinephrine infusion. Hydrocortisone has also been added for vasopressor dependent shock. A repeat lactate is ordered for later today. (4) Acute renal failure Assessment & Plan: Her creatinine was elevated at admission. This is likely secondary to her obstructing stone and hypotension. Her creatinine is improving with IV fluids. (5) Cellulitis of great toe, right Status: Chronic Assessment & Plan: The patient has had a chronic infection in the R great toe since the beginning of the year. She had a foot x-ray in July that was negative for bony changes. She most recently has been on Keflex and is followed by Dr. Corrales. (6) Ulcer of other part of lower limb Status: Chronic Assessment & Plan: The patient has chronic venous stasis changes of the L lower leg. She has open wounds without redness or drainage currently. (7) History of cerebral hemorrhage Status: Resolved Assessment & Plan: The patient had a cerebral hemorrhage in June 2009. CT at that time showed "a large amount of intraventricular hemorrhage within the right lateral ventricle with extension into the left lateral ventricle as well as the third and fourth ventricles". The patient was transferred to [facility] at that time and was in a coma for several weeks. She then had extensive rehabilitation. 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 (8) Essential hypertension Status: Chronic Assessment & Plan: The patient takes lisinopril 20mg bid, amlodipine 10mg daily , metoprolol succinate 50mg daily and spironolactone 25mg daily at home. These are all currently held secondary to hypotension. (9) Controlled type 2 diabetes mellitus with diabetic neuropathy, without long- term current use of insulin Status: Chronic Assessment & Plan: The patient takes metformin 500mg po bid. This is currently on hold and she is receiving sliding scale level #2. (10) CAD (coronary artery disease) Status: Chronic Assessment & Plan: The patient has past history of ID. Her most recent echo per the EMR was in 2012 and her EF was low normal at that time. Her troponin has been equivocal, which is likely secondary to renal failure and the stress of her infection. (11) Obstructive sleep apnea Status: Chronic Assessment & Plan: The patient states she wears O2 at HS. (12) Morbid obesity Status: Chronic Assessment & Plan: BMI is 42.4. Exam Sepsis Risk: Severe Sepsis Risk IVORY BUENO DO Sep 30, 2017 10:33
--- NOTE | 2017-09-30 10:36 | RADIOLOGY IMAGING REPORT ---
FACILITY: [facility] PATIENT NAME: Etelvina Salazar : 1950 MR: [id number] V: [id number] EXAM DATE: ORDERING PHYSICIAN: MAVERICK ANTHONY TECHNOLOGIST: Location: [facility] Patient: Etelvina Salazar : 1950 Visit/Account:[id number] Date of Sevice: 09/30/2017 Technique: C-ARM FLUORO 1 HR HISTORY: SEPTIC SHOCK Comparison studies: CT abdomen pelvis September 29, 2017 FINDINGS: 3 operative fluoroscopic images were obtained. There has been placement of a right-sided i nternal ureteral stent in gross anatomic alignment. Fluoroscopy time: 5 seconds IMPRESSION: 1. Intraoperative fluoroscopic radiographs as described above. Please see operative report for furt her details. Report Dictated By: Az Morrissey DO at 09/30/2017 10:31 AM Report E-Signed By: Az Morrissey DO at 09/30/2017 10:33 AM WSN:[id number]
[2017-09-30] MEDS: CEFEPIME HCL 2 GM VIAL IVP SCH ×2 (10:38→22:22)
[2017-09-30] MEDS ORDERED: MORPHINE 2 MG/ML SYR IVP PRN (11:30)
[2017-09-30] MEDS: HYDROCORTISONE 100 MG/2 ML IVP SCH ×2 (11:52→20:04)
[2017-09-30] MEDS ORDERED: GLYCOPYRROLATE 0.2MG/ML 1 ML INJ IVP PRN (13:20)
[2017-09-30] MEDS ORDERED: BELLADONNA ALKALOIDS/OPIUM 30 MG SUPP PR PRN (13:20)
[2017-09-30] MEDS: NS(*) 0.9% 1000 ML BAG 1,000 ML IV PRN (18:13)
[2017-09-30] MEDS: LEVOFLOXACIN/D5W 750 MG/150 ML 150 ML IVPB SCH (20:05)
[2017-09-30] MEDS: INSULIN HUM LISPRO 100 UN/ML 3 ML VIAL SUBQ PRN (22:23)
[2017-10-01] VITALS (35 sets, daily range): BP systolic 95–147; BP diastolic 51–86
[2017-10-01] MEDS: NS(*) 0.9% 1000 ML BAG 1,000 ML IV PRN ×2 (01:37→08:32)
[2017-10-01] MEDS: HYDROCORTISONE 100 MG/2 ML IVP SCH ×3 (03:38→20:26)
--- NOTE | 2017-10-01 04:02 | OPERATIVE REPORT 1 ---
EVENT DATE: September 30, 2017 SURGEON: Jose Colbert MD ANESTHESIOLOGIST: Dane Muñoz MD ANESTHESIA: General. PREOPERATIVE DIAGNOSES 1. Urosepsis. 2. Right pyelonephritis. 3. Right ureterolithiasis with associated high-grade obstruction. 4. Right renal lithiasis. POSTOPERATIVE DIAGNOSES 1. Urosepsis. 2. Right pyelonephritis. 3. Right ureterolithiasis with associated high-grade obstruction. 4. Right renal lithiasis. PROCEDURE PERFORMED 1. Cystourethroscopy. 2. Collection of urine from the bladder for culture and sensitivity. 3. Placement of right ureteral stent. 4. Collection of urine from the right kidney for urinalysis and culture and sensitivity. DESCRIPTION OF PROCEDURE Under general anesthetic, the patient was prepped and draped in the extended lithotomy position. The 21 panendoscope admitted through the urethra into the bladder. Urine was obtained for culture and sensitivity. Bladder showed 4+ trabeculation, multiple diverticula. Bladder showed evidence of acute cystitis with erythematous lesions, no ulcerations. Right access catheter was placed in the right distal ureter. There was an obstruction approximately 1 inch cephalad. The 0.038 guide wire was placed, and the stone was manipulated free, and the access catheter was placed all the way to the right kidney. The urine was collected, approximately 15-20 mL from the right kidney, relatively clear in appearance with some mucus evident in it. X-ray confirmed satisfactory positioning of the guidewire. 6 [place] x 28 cm Percuflex Plus passed up the right collecting system. X-ray confirmed satisfactory positioning in the right kidney, and there was a full curl in the bladder. The x-rays were reviewed again at the conclusion of the procedure to confirm that the lesion was on the right side, and indeed that was the case on re-review , as was done preoperatively with the consult done at the intensive care unit by me earlier. Patient tolerated the procedure satisfactorily and returned to the Recovery Room in serious but satisfactory condition. INDICATION FOR PROCEDURE This is a 66-year-old white female complaining of: 1. Urosepsis. 2. Right ureterolithiasis with associated high-grade obstruction. 3. Probable pyelonephritis and acute cystitis. Patient was admitted in the late a.m. on September 29, 2017. She was delirious and disoriented at that time. Patient had a fever to 106 degrees. White count was 41,000. Blood culture after less than 24 hours was positive for cocci. Patient had been placed on four antibiotics, and when asked to consult this a.m. , she was actually alert and was feeling much better in the intensive care unit. Options were discussed with the patient and her , and she was agreeable to decompression of the right kidney by placement of ureteral stent to allow for free drainage and clearing of the infection. Plan followup evaluation and treatment of her ureteral and renolithiasis and probable infected stone. PLAN Patient will be transferred back to the intensive care unit for close observation. Will continue the hospitalist orders and antibiotics. They are to strain all of her urine. Will monitor her I&O appropriately. SAMPSON
[2017-10-01 05:28] LABS: PLATELET COUNT, AUTOMATED 81 K/uL (150-450)
[2017-10-01] MEDS: PANTOPRAZOLE SOD 40 MG IV VIAL IVP SCH (08:32)
[2017-10-01] MEDS: CEFEPIME HCL 2 GM VIAL IVP SCH ×2 (10:39→21:47)
--- NOTE | 2017-10-01 11:33 | Hospitalist Progress Note ---
Subjective Progress Notes Subjective 66F presented with sepsis 2/2 pyelonephritis. This am doing well after ureteral stenting. WBC coming down, afebrile since stent. Patient Complains of: Neurological: No: Syncope, Confusion, Weakness, Dizziness Cardiovascular: No: Chest Pain, Palpitations Respiratory: No: Cough, Congestion Gastrointestinal: No Nausea, No Vomiting Genitourinary: No Dysuria, No Hematuria Musculoskeletal: No: Pain, Sprain, Strain Physical Exam Vital Signs Date Time Temp Pulse Resp B/P (MAP) Pulse Ox O2 Delivery O2 Flow Rate FiO2 10/01/17 10:00 97.7 85 15 107/60 (76) 92 Nasal Cannula 3.0 Intake and Output 10/02/17 07:00 Intake Total 700 ml Balance 700 ml Intake IV Total 700 ml General Appearance: Alert, Awake, No Acute Distress Neuro: No Gross deficits Eyes: PERRLA ENT: Normal Neck: No Masses Cardiovascular: Normal Rhythm & Peripheral Pulses Respiratory: No Respiratory Distress, Clear to Auscultation Chest: No Masses GI: Soft and Non-Tender : Normal (+ Bah) Lymph: No Adenopathy Musculoskeletal: No Weakness/Pain Extremities: Soft and Non Tender Integumentary: Skin Intact without Lesion / Mass Psych: Alert & Oriented X3 Result Diagram: 10/01/17 0510/01/17517 Monitor Interpretation: Normal Sinus Rhythm Assessment and Plan Problems: (1) Pyelonephritis Assessment & Plan: Her urine was positive for large leukocytes and many bacteria, CT showed obstructing stone R hydronephrosis and fat stranding. Her blood cultures are both showing growth of a gram negative rods one proteus the other pending ID. A urine culture is growing proteus and klebsiella species with a third unidentified auera. Follow Cx and narrow coverage as appropriate. (2) Acute renal failure Assessment & Plan: Her creatinine was elevated at admission. This is likely secondary to her obstructing stone and hypotension. Her creatinine is improving with IV fluids and stent placement. (3) Septic shock Status: Resolved Assessment & Plan: She has had a fever to 106 and hypotension on admission. Her lactate is also elevated. She has received both fluids and a norepinephrine infusion. Now resolved off pressors. (4) Obstructive uropathy Assessment & Plan: She was found to have multiple bilateral renal stones with an obstructing stone and hydronephrosis on the right. Dr. Flock took her and placed stent. (5) Cellulitis of great toe, right Status: Chronic Assessment & Plan: The patient has had a chronic infection in the R great toe since the beginning of the year. She had a foot x-ray in July that was negative for bony changes. She most recently has been on Keflex and is followed by Dr. Corrales. (6) Ulcer of other part of lower limb Status: Chronic Assessment & Plan: The patient has chronic venous stasis changes of the L lower leg. She has open wounds without redness or drainage currently. (7) History of cerebral hemorrhage Status: Resolved Assessment & Plan: The patient had a cerebral hemorrhage in June 2009. CT at that time showed "a large amount of intraventricular hemorrhage within the right lateral ventricle with extension into the left lateral ventricle as well as the third and fourth ventricles". The patient was transferred to [facility] at that time and was in a coma for several weeks. She then had extensive rehabilitation. 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 (8) Essential hypertension Status: Chronic Assessment & Plan: The patient takes lisinopril 20mg bid, amlodipine 10mg daily , metoprolol succinate 50mg daily and spironolactone 25mg daily at home. These are all currently held secondary to hypotension. (9) Controlled type 2 diabetes mellitus with diabetic neuropathy, without long- term current use of insulin Status: Chronic Assessment & Plan: The patient takes metformin 500mg po bid. This is currently on hold and she is receiving sliding scale level #2. (10) CAD (coronary artery disease) Status: Chronic Assessment & Plan: The patient has past history of ME. Her most recent echo per the EMR was in 2012 and her EF was low normal at that time. Her troponin has been equivocal, which is likely secondary to renal failure and the stress of her infection. (11) Obstructive sleep apnea Status: Chronic Assessment & Plan: The patient states she wears O2 at HS. (12) Morbid obesity Status: Chronic Assessment & Plan: BMI is 42.4. Exam Sepsis Risk: Sepsis Risk NERISSA WYLIE DO Oct 01, 2017 11:32
[2017-10-01] MEDS ORDERED: BELLADONNA ALK/OPIUM 60MG SUPP PR PRN (12:00)
[2017-10-01] MEDS: INSULIN HUM LISPRO 100 UN/ML 3 ML VIAL SUBQ PRN ×3 (12:05→21:47)
--- NOTE | 2017-10-01 15:10 | Antimicrobial Stewardship ---
Antimicrobial Stewardship MD Service: Hospitalist Indications: Other (Septic Shock) Antimicrobial Used 09/29/17-09/30/17 Vancomycin IV and Metronidazole IV. 09/29/17 to present Cefepime IV and Levofloxacin IV. Start Date: Sep 29, 2017 Height (Calculated Centimeters: 175.715313 Weight (Calculated Kilograms): 132.903 Culture Results: No (Urine and Blood Cultures Final results pending.) Patient Improving Clinically: Yes Tolerating Oral Fluids: Yes Able to Absorb PO Meds: Yes Taking Other Meds PO: Yes Received >24 hr of IV Abx: Yes Afebrile > 24 hrs: Yes Heart Rate < or = 90 bpm: Yes RR < or = 20 bpm: Yes Improving Signs and Symptoms: Yes Comments Plan to narrow antibiotic treatment based on culture results per Hospitalist Progress Note. ALEXANDRO VERDUZCO Oct 01, 2017 15:10
--- NOTE | 2017-10-01 17:31 | Medical Nutrition Therapy ---
Nutrition Anthropometrics Height (Inches): 69.00 Height (Calculated Centimeters: 175.870485 Weight (Pounds): 293 Weight (Calculated Kilograms): 132.903 BMI: 43.3 Peña Nutrition Score: Adequate Peña Nutrition Risk Score: 14 Dietary Referral Nutrition Risk Factors: Nutrition Risk Comment: Physical Findings Physical Appearance: Morbidly Obese 40+ Skin Appearance Skin Appearance: Edema Edema Location Modifier: Both Edema Location: Lower Extremity Type of Edema: Degree of Edema: 2+ Gastrointestinal Symptoms GI Symtoms: Tube Present: Bowel Sounds: Recent Bowel Pattern: Stool Characteristics: Nutritional Diagnosis Nutritional Risk Acuity 1: Acute/ES Renal Nutritional Risk Acuity 3: Fair Appetite, Morbid Obesity Past Medical History: T2DM. HTN, Hypothyroid, Depression Nutritional Acuity: 1-High Nutrition Diagnosis: Over-weight/Obesity Nutrition Etiology: Psychological Issues, Physiological Causes Nutrition Problem/Etiology/Sym: Overweight/Obesity related to Physical inactivity, depression, hypothryroid AEB current wt ot 130.408 Kg. Energy Requirement: 2074 (Sarkar [place] Adj REE X 1.5) Protein Requirement: 57 (IBW Kg X 1.0) Fluid Requirement: 2074 Diet Type: Diabetic Nutrition Intervention: Cont diet as ordered, Encourage intake Nutrition Monitoring & Eval Nutrition Goals: Eat 75-100% Meal RD Patient Assessment Time: [address] Assessment Type: RD Re-Assessment Patient Nutrition Acuity: 1-High Follow Up Date: Oct 04, 2017 Nutritional Comment: 09/29 Pt admitted for altered mental status and sepic shock. WBC 16.4, Lactate 4.3, Glu 178, High BUN/CREAT. Lispro SSI. Not able to evaluate wt status d/t lack of HT, however WT of 130.408 KG probably indicates overwt/obesity. Receiving Diabetes diet with no reports of intake. Follow intake, labs, HT, etc. -DRT 10/01 Pt admitted for pylonephritis, sepsis, and ARF. Sepsis resolved. BUN and creatinine cont elevated but have improved to 33 snd 1.4. Alb mildly depleted at 2.8. Pt has hx of T2DM and is recieving diabetic diet. Pt eating 50% of meals. BMi is in class 3 obesity range. Will cont to monito and encourage healthy intake. RUPINDER ADEN Oct 01, 2017 17:31
[2017-10-01] MEDS: LEVOFLOXACIN/D5W 750 MG/150 ML 150 ML IVPB SCH (20:25)
[2017-10-02 03:10] VITALS: BP 133/75
[2017-10-02] MEDS: NS(*) 0.9% 1000 ML BAG 1,000 ML IV PRN ×2 (03:15→17:28)
[2017-10-02] MEDS: HYDROCORTISONE 100 MG/2 ML IVP SCH ×2 (03:20→21:31)
[2017-10-02 06:01] LABS: PLATELET COUNT, AUTOMATED 84 K/uL (150-450)
[2017-10-02 07:33] VITALS: BP 154/101
[2017-10-02] MEDS: PANTOPRAZOLE SOD 40 MG IV VIAL IVP SCH (08:54)
[2017-10-02] MEDS: CEFEPIME HCL 2 GM VIAL IVP SCH ×2 (10:22→21:58)
--- NOTE | 2017-10-02 11:04 | Hospitalist Progress Note ---
Subjective Progress Notes Subjective She reports feeling very good. She only c/o some vaginal area irritation. Physical Exam Vital Signs Date Time Temp Pulse Resp B/P (MAP) Pulse Ox O2 Delivery O2 Flow Rate FiO2 10/02/17 08:58 94 Nasal Cannula 2.5 10/02/17 07:33 97.9 88 20 154/101 (118) Intake and Output 10/03/17 07:00 Intake Total 400 ml Balance 400 ml Intake Oral 400 ml # Voids 1 General Appearance: Alert, Awake Cardiovascular: Regular Rate and Rhythm Respiratory: Clear to Auscultation GI: Soft and Non-Tender : Other (nursing reports some perineal skin irritation) Extremities: Warm, Perfused, Edema Integumentary: Generalized Fragile Skin Result Diagram: 10/02/1752610/02/17526 Assessment and Plan Problems: (1) Pyelonephritis Assessment & Plan: Her urine was positive for large leukocytes and many bacteria, CT showed obstructing stone with right hydronephrosis and fat stranding. Her blood cultures are growing Proteus in one a GNR in the other. A urine culture is growing Proteus and Klebsiella species with a third unidentified gram negative aurea. Await final culture results and modify antibiotics as needed. (2) Acute renal failure Assessment & Plan: Her creatinine was elevated at admission. This is likely secondary to her obstructing stone and hypotension. Her creatinine is improving with IV fluids and stent placement (1.1 today). (3) Septic shock Status: Resolved Assessment & Plan: Due to urinary tract infection. She had a fever to 106F and hypotension on admission. Her lactate was also elevated. She received both fluids and a norepinephrine infusion. Now resolved and off pressors. (4) Obstructive uropathy Assessment & Plan: She was found to have multiple bilateral renal stones with an obstructing stone and hydronephrosis on the right. Dr. Colbert placed stent. (5) Cellulitis of great toe, right Status: Chronic Assessment & Plan: The patient has had a chronic infection in the R great toe since the beginning of the year. She had a foot x-ray in July that was negative for bony changes. She most recently has been on Keflex and is followed by Dr. Corrales. (6) Ulcer of other part of lower limb Status: Chronic Assessment & Plan: The patient has chronic venous stasis changes of the left lower leg. She has open wounds without redness or drainage currently. (7) History of cerebral hemorrhage Status: Resolved Assessment & Plan: The patient had a cerebral hemorrhage in June 2009. CT at that time showed "a large amount of intraventricular hemorrhage within the right lateral ventricle with extension into the left lateral ventricle as well as the third and fourth ventricles". The patient was transferred to [facility] at that time and was in a coma for several weeks. She then had extensive rehabilitation. 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 (8) Essential hypertension Status: Chronic Assessment & Plan: The patient takes lisinopril 20mg bid, amlodipine 10mg daily , metoprolol succinate 50mg daily and spironolactone 25mg daily at home. These are all currently held. Her BPs show only mild elevation at this time. Will continue to monitor off medications. (9) Controlled type 2 diabetes mellitus with diabetic neuropathy, without long- term current use of insulin Status: Chronic Assessment & Plan: The patient takes metformin 500mg po bid. This is currently on hold and she is receiving sliding scale level #2. (10) CAD (coronary artery disease) Status: Chronic Assessment & Plan: The patient has past history of CT. Her most recent echo per the record was in 2012 and her EF was low normal at that time. Her troponin has been equivocal, which is likely secondary to renal failure and the stress of her infection. (11) Obstructive sleep apnea Status: Chronic Assessment & Plan: The patient states she wears O2 at HS. (12) Morbid obesity Status: Chronic Assessment & Plan: BMI is 42.4. (13) Candidiasis of perineum Status: Acute Assessment & Plan: Will use nystatin topical. Monitor. Exam Sepsis Risk: No Definite Risk TAD VARELA MD Oct 02, 2017 11:04
[2017-10-02 11:16] VITALS: BP 152/88
[2017-10-02] MEDS: NYSTATIN 100,000 U/GM PWD 15GM TP SCH ×2 (11:20→21:31)
[2017-10-02] MEDS: MOISTURIZING CREAM 120 GM JAR TP PRN ×2 (11:21→21:58)
[2017-10-02] MEDS: INSULIN HUM LISPRO 100 UN/ML 3 ML VIAL SUBQ PRN ×2 (11:56→17:20)
[2017-10-02 15:41] VITALS: BP 148/82
[2017-10-02] MEDS: LEVOFLOXACIN/D5W 750 MG/150 ML 150 ML IVPB SCH (19:44)
[2017-10-02 19:52] VITALS: BP 142/80
[2017-10-02] MEDS ORDERED: NS(*) 0.9% 100 ML BAG 100 ML ONE (21:49)
[2017-10-02 23:24] VITALS: BP 145/85
[2017-10-03 02:15] VITALS: BP 145/90
[2017-10-03 06:05] LABS: PLATELET COUNT, AUTOMATED 87 K/uL (150-450)
[2017-10-03 07:45] VITALS: BP 143/88
[2017-10-03] MEDS: CEFEPIME HCL 2 GM VIAL IVP SCH (09:29)
[2017-10-03] MEDS: PANTOPRAZOLE SOD 40 MG IV VIAL IVP SCH (09:30)
[2017-10-03] MEDS: HYDROCORTISONE 100 MG/2 ML IVP SCH (09:31)
[2017-10-03] MEDS: NYSTATIN 100,000 U/GM PWD 15GM TP SCH ×2 (09:42→20:21)
[2017-10-03] MEDS: LEVOTHYROXINE SOD 0.150 MG TAB PO SCH (11:18)
[2017-10-03 11:20] VITALS: BP 155/99
--- NOTE | 2017-10-03 12:02 | Hospitalist Progress Note ---
Subjective Progress Notes Subjective Feeling overall improved from admission, but still reporting LE weakness. Physical Exam Vital Signs Date Time Temp Pulse Resp B/P (MAP) Pulse Ox O2 Delivery O2 Flow Rate FiO2 10/03/17 11:20 98.3 89 16 155/99 (117) 90 Nasal Cannula 2.0 Intake and Output 10/04/17 07:00 Intake Total 240 ml Balance 240 ml Intake Oral 240 ml # Voids 1 General Appearance: Alert, Awake, No Acute Distress GI: Soft and Non-Tender : Other (Right flank discomfort with palpation) Result Diagram: 10/03/17 0549 10/03/1749 Assessment and Plan Problems: (1) Pyelonephritis Assessment & Plan: Her urine was positive for large leukocytes and many bacteria, CT showed obstructing stone with right hydronephrosis and fat stranding. Her blood cultures are growing Proteus. A urine culture is growing Proteus/Klebsiella species/E. Coli. She was on Levofloxacin/Cefepime. Now just on Levofloxacin orally. (2) Obstructive uropathy Assessment & Plan: She was found to have multiple bilateral renal stones with an obstructing stone and hydronephrosis on the right. Dr. Colbert placed stent on 09/30. (3) Septic shock Status: Resolved Assessment & Plan: Due to pyelonephritis/ureteral obstruction. She had a fever to 106F and hypotension on admission. Her lactate was also elevated. She received both fluids and a norepinephrine infusion. Now resolved and off pressors. Will stop stress dose steroid today. (4) Acute renal failure Assessment & Plan: Her creatinine was elevated at admission. This is likely secondary to her obstructing stone and hypotension. Her creatinine is improving with IV fluids and stent placement (1.1 today). (5) Cellulitis of great toe, right Status: Resolved Assessment & Plan: The patient has had a chronic infection in the R great toe since the beginning of the year. She had a foot x-ray in July that was negative for bony changes. She most recently has been on Keflex and is followed by Dr. Corrales. The toe is erythematous, but not warm or tender. Will defer followup to her PCP. (6) Ulcer of other part of lower limb Status: Chronic Assessment & Plan: The patient has chronic venous stasis changes of the left lower leg. She has open wounds without redness or drainage currently. (7) History of cerebral hemorrhage Status: Resolved Assessment & Plan: The patient had a cerebral hemorrhage in June 2009. CT at that time showed "a large amount of intraventricular hemorrhage within the right lateral ventricle with extension into the left lateral ventricle as well as the third and fourth ventricles". The patient was transferred to [facility] at that time and was in a coma for several weeks. She then had extensive rehabilitation. 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 (8) Essential hypertension Status: Chronic Assessment & Plan: The patient takes lisinopril 20mg bid, amlodipine 10mg daily , metoprolol succinate 50mg daily and spironolactone 25mg daily at home. These are all currently held. Her BPs show only mild elevation at this time. Will continue to monitor off medications. (9) Controlled type 2 diabetes mellitus with diabetic neuropathy, without long- term current use of insulin Status: Chronic Assessment & Plan: The patient takes metformin 500mg po bid. Will restart and she is receiving sliding scale level #2. (10) CAD (coronary artery disease) Status: Chronic Assessment & Plan: The patient has past history of [place]. Her most recent echo per the record was in 2012 and her EF was low normal at that time. Her troponin has been equivocal, which is likely secondary to renal failure and the stress of her infection. (11) Obstructive sleep apnea Status: Chronic Assessment & Plan: The patient states she wears O2 at HS. (12) Morbid obesity Status: Chronic Assessment & Plan: BMI is 42.4. (13) Candidiasis of perineum Status: Acute Assessment & Plan: Will use nystatin topical. Monitor. Exam Sepsis Risk: Severe Sepsis Risk RAZA WEINER MD Oct 03, 2017 12:02
[2017-10-03 14:38] VITALS: BP 145/87
[2017-10-03] MEDS: metFORMIN HCL 500 MG TAB PO SCH (16:40)
[2017-10-03] MEDS: INSULIN HUM LISPRO 100 UN/ML 3 ML VIAL SUBQ PRN (16:45)
[2017-10-03] MEDS: LEVOFLOXACIN 750 MG TAB PO SCH (20:21)
[2017-10-03 20:24] VITALS: BP 150/84
[2017-10-03] MEDS: MOISTURIZING CREAM 120 GM JAR TP PRN (20:52)
[2017-10-03 23:37] VITALS: BP 131/113
[2017-10-04 02:20] VITALS: BP 137/76
[2017-10-04] MEDS: LEVOTHYROXINE SOD 0.150 MG TAB PO SCH (05:36)
[2017-10-04 05:55] LABS: PLATELET COUNT, AUTOMATED 81 K/uL (150-450)
[2017-10-04 07:53] VITALS: BP 137/83
[2017-10-04] MEDS: NYSTATIN 100,000 U/GM PWD 15GM TP SCH ×2 (08:41→20:34)
[2017-10-04] MEDS: metFORMIN HCL 500 MG TAB PO SCH ×2 (08:41→16:40)
[2017-10-04] MEDS ORDERED: diphenhydrAMINE 25 MG CAP PO PRN (09:50)
[2017-10-04 10:40] VITALS: BP 156/96
[2017-10-04] MEDS: METOPROLOL SUCC XL 50 MG TABCR 50 MG TAB.ER.24H PO SCH (10:42)
[2017-10-04] MEDS: POTASSIUM CHL 10 MEQ TABCR PO SCH ×2 (10:42→16:40)
--- NOTE | 2017-10-04 10:57 | Medical Nutrition Therapy ---
Nutrition Anthropometrics Height (Inches): 69.00 Height (Calculated Centimeters: 175.841838 Weight (Pounds): 280 Weight (Calculated Kilograms): 127.176 BMI: 43.3 Peña Nutrition Score: Adequate Peña Nutrition Risk Score: 14 Dietary Referral Nutrition Risk Factors: Nutrition Risk Comment: Physical Findings Physical Appearance: Morbidly Obese 40+ Skin Appearance Skin Appearance: Edema Edema Location Modifier: Both Edema Location: Lower Extremity Type of Edema: Degree of Edema: 1+ Gastrointestinal Symptoms GI Symtoms: Tube Present: Bowel Sounds: Recent Bowel Pattern: Stool Characteristics: Nutrition/Food History Increased Appetite Nutritional Diagnosis Nutritional Risk Acuity 1: Acute/ES Renal Nutritional Risk Acuity 3: Morbid Obesity Nutritional Risk Acuity 4: Good Appetite Past Medical History: T2DM. HTN, Hypothyroid, Depression Nutritional Acuity: 1-High Nutrition Diagnosis: Over-weight/Obesity Nutrition Etiology: Psychological Issues, Physiological Causes Nutrition Problem/Etiology/Sym: Overweight/Obesity related to Physical inactivity, depression, hypothryroid AEB current wt ot 130.408 Kg. Energy Requirement: 2074 (Sarkar Outing Adj REE X 1.5) Protein Requirement: 57 (IBW Kg X 1.0) Fluid Requirement: 2074 Diet Type: Diabetic Nutrition Intervention: Cont diet as ordered, Encourage intake Nutrition Monitoring & Eval Nutrition Goals: Eat 50-100% Meal RD Patient Assessment Time: [address] Assessment Type: RD Re-Assessment Patient Nutrition Acuity: 1-High Follow Up Date: Oct 07, 2017 Nutritional Comment: 09/29 Pt admitted for altered mental status and sepic shock. WBC 16.4, Lactate 4.3, Glu 178, High BUN/CREAT. Lispro SSI. Not able to evaluate wt status d/t lack of HT, however WT of 130.408 KG probably indicates overwt/obesity. Receiving Diabetes diet with no reports of intake. Follow intake, labs, HT, etc. -DRT 10/01 Pt admitted for pylonephritis, sepsis, and ARF. Sepsis resolved. BUN and creatinine cont elevated but have improved to 33 snd 1.4. Alb mildly depleted at 2.8. Pt has hx of T2DM and is recieving diabetic diet. Pt eating 50% of meals. BMi is in class 3 obesity range. Will cont to monito and encourage healthy intake. BK 8/3 High BUN/Creat, High WBC, K+ 3.2, Glu 81, Ca+ 7.9. Continues with Diabetic diet and consuming 100% of meals. May consider diabetes education. Follow labs, intake, wt, etc. -RICO DUTTON Oct 04, 2017 10:57
--- NOTE | 2017-10-04 12:47 | Hospitalist Progress Note ---
Subjective Progress Notes Subjective The patient states she is feeling better overall. She complains of itching on her back and pain/redness of her L forearm. Physical Exam Vital Signs Date Time Temp Pulse Resp B/P (MAP) Pulse Ox O2 Delivery O2 Flow Rate FiO2 10/04/17 10:40 98.3 76 16 156/96 (116) 95 Nasal Cannula 2.0 Intake and Output 10/05/17 07:00 Intake Total 240 ml Balance 240 ml Intake Oral 240 ml # Voids 1 General Appearance: Alert, Awake, No Acute Distress, Afebrile Neuro: No Gross deficits Cardiovascular: Regular Rate and Rhythm Respiratory: Clear to Auscultation GI: Soft and Non-Tender Lymph: No Adenopathy Extremities: Other (R forearm with dark red discoloration anteriorly, warm to the touch. Palpable superficial cord noted. R great toe with less redness and swelling. L LE with venous stasis changes. Healing puncture wounds without redness or drainage.) Integumentary: Other (See above.) Psych: Alert & Oriented X3, Appropriate Mood & Affect Result Diagram: 10/04/1751910/04/17519 Assessment and Plan Problems: (1) Superficial phlebitis of arm Status: Acute Assessment & Plan: Increased redness, warmth and palpable superficial cord of the L forearm noted. Will hot pack and order a venous doppler to rule out extension to the deep venous system. (2) Thrombocytopenia Status: Acute Assessment & Plan: Etiology unclear but is likely related to her severe illness. Her plt count has stabilized. Will monitor. (3) Hypokalemia Status: Acute Assessment & Plan: Replacement ordered orally today. (4) Pyelonephritis Assessment & Plan: Her urine was positive for large leukocytes and many bacteria, CT showed obstructing stone with right hydronephrosis and fat stranding. Her blood cultures grew Proteus. A urine culture is growing Proteus /Klebsiella species/E. Coli. She was on Levofloxacin/Cefepime. Now just on Levofloxacin orally. She continues to be afebrile. WBC continues to improve. (5) Obstructive uropathy Assessment & Plan: She was found to have multiple bilateral renal stones with an obstructing stone and hydronephrosis on the right. Dr. Colbert placed stent on 09/30. (6) Septic shock Status: Resolved Assessment & Plan: Due to pyelonephritis/ureteral obstruction. She had a fever to 106F and hypotension on admission. Her lactate was also elevated. She received both fluids and a norepinephrine infusion. Now resolved and off pressors. Stress dose steroids stopped 09/02. (7) Acute renal failure Assessment & Plan: Her creatinine was elevated at admission. This is likely secondary to her obstructing stone and hypotension. Her creatinine is improving with IV fluids and stent placement (1.1 today). (8) Cellulitis of great toe, right Status: Resolved Assessment & Plan: The patient has had a chronic infection in the R great toe since the beginning of the year. She had a foot x-ray in July that was negative for bony changes. She most recently has been on Keflex and is followed by Dr. Corrales. The toe is erythematous, but not warm or tender which is improved from admission. Will have her continue to follow up with her PCP on discharge. (9) Ulcer of other part of lower limb Status: Chronic Assessment & Plan: The patient has chronic venous stasis changes of the left lower leg. She has open wounds without redness or drainage currently. These have improved since admission. (10) History of cerebral hemorrhage Status: Resolved Assessment & Plan: The patient had a cerebral hemorrhage in June 2009. CT at that time showed "a large amount of intraventricular hemorrhage within the right lateral ventricle with extension into the left lateral ventricle as well as the third and fourth ventricles". The patient was transferred to [facility] at that time and was in a coma for several weeks. She then had extensive rehabilitation. 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 (11) Essential hypertension Status: Chronic Assessment & Plan: The patient takes lisinopril 20mg bid, amlodipine 10mg daily , metoprolol succinate 50mg daily and spironolactone 25mg daily at home. These are all currently held. Her BPs show only mild elevation at this time. Will restart metoprolol due to hx of CAD as well. (12) Controlled type 2 diabetes mellitus with diabetic neuropathy, without long- term current use of insulin Status: Chronic Assessment & Plan: The patient takes metformin 500mg po bid. Will restart and she is receiving sliding scale level #2. (13) CAD (coronary artery disease) Status: Chronic Assessment & Plan: The patient has past history of [place]. Her most recent echo per the record was in 2012 and her EF was low normal at that time. Her troponin has been equivocal, which is likely secondary to renal failure and the stress of her infection. (14) Obstructive sleep apnea Status: Chronic Assessment & Plan: The patient states she wears O2 at HS. (15) Morbid obesity Status: Chronic Assessment & Plan: BMI is 42.4. (16) Candidiasis of perineum Status: Acute Assessment & Plan: Will use nystatin topical. Monitor. Time Spent on Plan of Care: < 30 min Exam Sepsis Risk: Severe Sepsis Risk EORS VARELA MD Oct 04, 2017 12:47
--- NOTE | 2017-10-04 13:02 | RADIOLOGY IMAGING REPORT ---
FACILITY: [facility] PATIENT NAME: Etelvina Salazar : 1950 MR: [id number] V: [id number] EXAM DATE: ORDERING PHYSICIAN: EROS VARELA TECHNOLOGIST: Location: [facility] [place] Patient: Etelvina Salazar : 1950 Visit/Account:[id number] Date of Sevice: 10/04/2017 VENOUS DOPP UPPER LEFT EXTREMI Indication: Swollen left upper extremity Comparison study: None Procedure: There has been satisfactory grayscale evaluation of the upper extremity, neck and chest ve ssels on the left side. Color flow analysis and evaluation of the Doppler waveforms was also performe d. Findings: Grayscale: The ulnar, radial, cephalic, basilic, brachial, axillary, subclavian and internal jugular veins are all compressible during grayscale imaging so far as visualized. Color flow and Doppler waveform analysis: Normal color flow and waveforms IMPRESSION: 1. No evidence of DVT. Report Dictated By: Az Morrissey DO at 10/04/2017 12:57 PM Report E-Signed By: Az Morrissey DO at 10/04/2017 1:00 PM WSN:[id number]
[2017-10-04 14:37] VITALS: BP 137/82
[2017-10-04 20:28] VITALS: BP 118/79
[2017-10-04] MEDS: LEVOFLOXACIN 750 MG TAB PO SCH (20:33)
[2017-10-04] MEDS: MOISTURIZING CREAM 120 GM JAR TP PRN (20:45)
[2017-10-04 23:28] VITALS: BP 151/110
[2017-10-05 02:00] VITALS: BP 132/75
[2017-10-05] MEDS: LEVOTHYROXINE SOD 0.150 MG TAB PO SCH (06:09)
[2017-10-05 06:11] LABS: PLATELET COUNT, AUTOMATED 93 K/uL (150-450)
[2017-10-05 06:55] VITALS: BP 148/88
[2017-10-05] MEDS: POTASSIUM CHL 10 MEQ TABCR PO SCH (07:55)
[2017-10-05] MEDS: metFORMIN HCL 500 MG TAB PO SCH (07:55)
[2017-10-05] MEDS: METOPROLOL SUCC XL 50 MG TABCR 50 MG TAB.ER.24H PO SCH (09:45)
[2017-10-05] MEDS: POTASSIUM CHL 20 MEQ TABCR PO SCH ×2 (09:45→12:15)
[2017-10-05] MEDS: NYSTATIN 100,000 U/GM PWD 15GM TP SCH (09:46)
[2017-10-05 10:29] VITALS: BP 137/78
[2017-10-05] MEDS: MAGNESIUM SUL/D5W* 1 GM/100 ML 100 ML IVPB SCH ×2 (12:12→13:39)
[2017-10-05] MEDS ORDERED: LEVO750T27 PO (13:05)
--- NOTE | 2017-10-05 13:18 | Hospitalist Depart ---
Discharge Summary Reason for Hosp/Final Diag: (1) Septic shock Status: Resolved Hospital Course & Plan: Resolved. Due to pyelonephritis/ureteral obstruction. She had a fever to 106F and hypotension on admission. Her lactate was also elevated. She received both fluids and a norepinephrine infusion. (2) Pyelonephritis Hospital Course & Plan: Her urine was positive for large leukocytes and many bacteria, CT showed obstructing stone with right hydronephrosis and fat stranding. Her blood cultures grew Proteus. A urine culture is growing Proteus /Klebsiella species/E. Coli. Levofloxacin orally. Afebrile. Please call to schedule follow up with Dr Coblert in clinic for ureteral stent. (3) Superficial phlebitis of arm Status: Acute Hospital Course & Plan: Increased redness, warmth and palpable superficial cord of the L forearm noted. US no deep venous involvement. (4) Thrombocytopenia Status: Acute Hospital Course & Plan: Etiology unclear but is likely related to her severe illness. Her plt count has stabilized, recommend recheck by PCP. (5) Hypokalemia Status: Acute Hospital Course & Plan: Mg low as well, replaced in hospital, recheck with PCP next week. Will not give potassium to go home on as on lisinopril and spironolactone which should cause K retention. (6) Obstructive uropathy Hospital Course & Plan: She was found to have multiple bilateral renal stones with an obstructing stone and hydronephrosis on the right. Dr. Colbert placed stent on 09/30. Follow up out patient with Dr Colbert. (7) Acute renal failure Hospital Course & Plan: Resolved. Her creatinine was elevated at admission. Secondary to her obstructing stone and hypotension. Her creatinine is improved with IV fluids and stent placement. (8) Cellulitis of great toe, right Status: Resolved Hospital Course & Plan: The patient has had a chronic infection in the R great toe since the beginning of the year. She had a foot x-ray in July that was negative for bony changes. She most recently has been on Keflex and is followed by Dr. Stone. The toe is erythematous, but not warm or tender which is improved from admission. Will have her continue to follow up with her PCP on discharge. (9) Ulcer of other part of lower limb Status: Chronic Hospital Course & Plan: The patient has chronic venous stasis changes of the left lower leg. She has open wounds without redness or drainage currently. These have improved since admission. (10) History of cerebral hemorrhage Status: Resolved Hospital Course & Plan: The patient had a cerebral hemorrhage in June 2009. CT at that time showed "a large amount of intraventricular hemorrhage within the right lateral ventricle with extension into the left lateral ventricle as well as the third and fourth ventricles". The patient was transferred to [facility] at that time and was in a coma for several weeks. She then had extensive rehabilitation. 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 (11) Essential hypertension Status: Chronic Hospital Course & Plan: The patient takes lisinopril 20mg bid, amlodipine 10mg daily, metoprolol succinate 50mg daily and spironolactone 25mg daily at home. These are all currently held. Her BPs show only mild elevation at this time. Will restart metoprolol due to hx of CAD as well. (12) Controlled type 2 diabetes mellitus with diabetic neuropathy, without long- term current use of insulin Status: Chronic Hospital Course & Plan: Resume metformin outpatient (13) CAD (coronary artery disease) Status: Chronic Hospital Course & Plan: The patient has past history of [place]. Her most recent echo per the record was in 2012 and her EF was low normal at that time. Her troponin has been equivocal, secondary to renal failure and the stress of her infection. (14) Obstructive sleep apnea Status: Chronic Hospital Course & Plan: The patient states she wears O2 at HS. (15) Morbid obesity Status: Chronic Hospital Course & Plan: BMI is 42.4. (16) Candidiasis of perineum Status: Acute Hospital Course & Plan: Nystatin used inpatient, follow up outpatient with PCP. Departure Weight (Pounds): 280 Weight (Ounces): 6.0 Result Diagram: 10/05/1752910/05/17529 Condition: Improved Discharge: Home Health PT/OT Follow Up For: PT For Strengthening Home Health NEWSWRITER Follow Up For: ADL Assistance Discharge Instructions Home Meds Active Scripts Metoprolol Succinate (METOPROLOL SUCCINATE) 50 Mg Tab.er.24h, 1 TAB PO QDAY, # 90 TAB 0 Refills Prov:RELL STONE MD 09/02/17 Levothyroxine Sodium (LEVOTHYROXINE SODIUM) 150 Mcg Tablet, 1 TAB PO QDAY, #30 TAB 5 Refills Prov:RELL STONE MD 07/16/17 Metformin Hcl (METFORMIN HCL) 500 Mg Tablet, 1 TAB PO BID, #360 TAB 3 Refills Prov:RELL STONE MD 06/04/17 Lisinopril (LISINOPRIL) 20 Mg Tablet, 1 TAB PO BID, #180 TAB 3 Refills Prov:RELL STONE MD 11/20/16 Spironolactone (SPIRONOLACTONE) 25 Mg Tablet, 1 TAB PO QAM, #90 TAB 4 Refills Prov:RELL STONE MD 09/14/16 Amlodipine Besylate (AMLODIPINE BESYLATE) 10 Mg Tablet, 1 TAB PO QDAY, #90 TAB 4 Refills Prov:RELL STONE MD 09/14/16 Reported Medications Multivitamin (DAILY VITAMIN) 1 Each Tablet, 1 TAB PO DAILY 03/10/14 Discontinued Scripts Cephalexin Monohydrate (CEPHALEXIN) 500 Mg Cap, 1 CAP PO QID, #40 CAP 0 Refills Prov:RELL STONE MD 07/25/17 Special Instructions: Follow up on with Dr. Colbert on Saturday at 3:15pm. Venous Thromboembolism Antithrombotics Is Pt On Any Antithrombotics?: No [id number] Certification Face to Face Home Health Certification Institutional Provider conducted the [id number] encounter. Electronic Undersigning Physician Certifies Home Health. I certify that the patient has been under my care and that I had a [id number] encounter that meets the physician [id number] encounter requirements with this patient. This patient is home-bound due to safety issues and continues to require assistance with ADL's. I certify that based on my findings, that Nursing, Aides and the following Home Health services are medically necessary: ADL, medication monitoring, PT/OT Medical Necessity: Rehab Date Face to Face Conducted: Oct 05, 2017 NERISSA WYLIE DO Oct 05, 2017 13:18
[2017-10-05] MEDS ORDERED: MAGNESIUM OXIDE 400 MG TAB PO ONE (13:35)
== END 2017-10-05 14:50 | disposition home health service (06) | DRG 871 ==
LOC: ER 08:08 → UNDOADMIN 10:05 → ICU 10:05 → MED 10-01 10:50
PROVIDERS: ADMIT Internal Medicine; ATTEND Internal Medicine
PROC: 4A133B1 Monitoring of Arterial Pressure, Peripheral, Percutaneous Approach (ICD-10-PCS; 2017-09-29)
PROC: 02HV33Z Insertion of Infusion Device into Superior Vena Cava, Percutaneous Approach (ICD-10-PCS; 2017-09-29)
PROC: 0T768DZ Dilation of Right Ureter with Intraluminal Device, Via Natural or Artificial Opening Endoscopic (ICD-10-PCS; principal; 2017-09-30 08:59)
DX: A41.89 Other specified sepsis (principal); R65.21 Severe sepsis with septic shock; N13.6 Pyonephrosis; N17.9 Acute kidney failure, unspecified; Z68.41 Body mass index [BMI] 40.0-44.9, adult; N30.00 Acute cystitis without hematuria; N10 Acute pyelonephritis; L03.031 Cellulitis of right toe; I10 Essential (primary) hypertension; E11.40 Type 2 diabetes mellitus with diabetic neuropathy, unspecified; I25.10 Atherosclerotic heart disease of native coronary artery without angina pectoris; G47.33 Obstructive sleep apnea (adult) (pediatric); I25.2 Old myocardial infarction; E89.0 Postprocedural hypothyroidism; E66.01 Morbid (severe) obesity due to excess calories; D69.6 Thrombocytopenia, unspecified; B96.20 Unspecified Escherichia coli [E. coli] as the cause of diseases classified elsewhere; B96.1 Klebsiella pneumoniae [K. pneumoniae] as the cause of diseases classified elsewhere; B37.2 Candidiasis of skin and nail; E83.42 Hypomagnesemia; R34 Anuria and oliguria; I87.8 Other specified disorders of veins; E87.6 Hypokalemia; Z85.850 Personal history of malignant neoplasm of thyroid; Z79.84 Long term (current) use of oral hypoglycemic drugs; Z86.73 Personal history of transient ischemic attack (TIA), and cerebral infarction without residual deficits; Z90.710 Acquired absence of both cervix and uterus
CPT/HCPCS: 36415; 36416; 36600; 70450; 71045; 74176; 76000; 80202; 80305; 81001; 82040; 82247; 82310; 82374; 82435; 82565; 82803; 82947; 82948; 83605; 83735; 84075; 84132; 84155; 84295; 84443; 84450; 84460; 84484; 84520; 85025; 85610; 85730; 87040; 87077; 87088; 87186; 87205; 93005; 94640; 96361; 96365; 96375; 97161; 97163; 97167; 99285; 99291; C1758; C1769; C1894; C2617; C9113; J0131; J0692; J1100; J1720; J1940; J1956; J2001; J2270; J2405; J2704; J3010; J3370; J3475; J3490; J7030; J7040; J7050; J7060; J7613; Q9966

== ENCOUNTER → 2017-09-29 | Outpatient (CLI) | payer BC, MEDICARE, OTHER ==
[~2017-09-29] MED LIST changes: +LEVO750T27 PO; +MAGN400C PO; +OXYGENHOME INH; -SPIR25TA78 PO; +SPIR25TA80 PO; +SULF1TAB24 PO
== END ==
LOC: AMB 07:45
PROVIDERS: ATTEND Nurse Practitioner
DX: R07.9 Chest pain, unspecified (principal); R41.82 Altered mental status, unspecified
CPT/HCPCS: A0425; A0427

== ENCOUNTER 2017-10-03 16:34 | Outpatient (RCR) | payer BC, MEDICARE, OTHER ==
[~2017-10-03 16:34] MED LIST changes: +AMLO-113 PO; -AMLO-99 PO; -METF-411 PO; +METF-450 PO
[2017-10-05] MEDS ORDERED: LEVO750T27 PO (13:05)
--- NOTE | 2017-10-06 12:50 | Transitional Care Management ---
Assessment Visit Type: Home Visit Spoke with: Vale, spouse Bharat, daughter Oralia Cardiac: WNL Except Cardiac Comment: 10/06 feels a little shaky and weak. Review safety with ambulation if she is dizzy. BP's with HHC. Little "puffy" in feet; enc exercising. Yesterday resumed spironolactone and lisinopril in hospital. Respiratory: WNL Except Respiratory Comment: 10/06 Spouse states she is on .5L daytime and he turns her to 2 L at hs. She sleeps in recliner. GI: Nutrition: WNL Except GI Comment: 10/06 Had bs of 130, 104, 97, 78 in hospital. has resumed metformin bid. Enc to do BS at home and record results to show PCP at next visit. Spouse cooks and asked about DM diet specifics. Review they eat little bread but like rice and potatoes; "Plate method" reviewed. He cooks low fat meats, fish, skinless chicken. Will add vege to each meal. Don't like salt. Had formed bm yesterday in hospital. Enc to report new diarrhea as she was on mult atb in hospital Constipation?: No : WNL Except Comment: 10/06 Almost total incont. Enc to go to bathroom q 2 hr to keep clean and dry. Review s/s UTI as she was septic in hospital. Enc 2 L fluids a day of water, crystal light not just coffee or gatorade Musculoskeletal, Exercise: WNL Except Musculoskeletal, Excercise Com: 10/06 HHC with PT ordered. Enc to do exercise when commercials come on tv Mobility/Falls: WNL Except Mobility Comment: 10/06 feels weak. Has approx same distance to bathroom in home as she did in hospital. Enc q 2 hr bathroom trips to stay dry. Integumentary: WNL Except Integumentary Comment: 10/06 Generalized rash on trunk and arms is dull red today; uses oint when itchy. Has nystat powder for reddened groin area. Has gold morgan DM cream and Eucerin for dry legs. Cellulitis of R great toe is less red. Spouse clipped toe nails today being careful not to knick the skin; inspect daily Feeling of Well Being: WNL Except Feeling of Well Being Comment: 10/06 Review need for life alert type system as spouse working daily. He has applied for FMLA to work 3am to 9am daily. son in law states he will research this item on the internet. Spouse states she has had prehospital short term memory loss. Socialization: WNL Except Socialization Comment: 10/06 suggested daughter come over when she is alone in house, when spouse is working. States she will have to come to let the dogs out when expecting HHC. Scheduled Follow-Up with [facility]: Yes (10/06 [facility] 10/08. No appt with [facility] yet) Community Resources/HHC: 10/06 [facility] expected Questions for Future PCP Visit: 10/06 Resume amlodipine? Followup labs: low platelets, Mag, Kcl TCM Discharge Criteria Medication Knowledge: 10/06 RX for levofloxacin filled and had first dose at home. Spouse admin her meds and has removed amlodipine from her regular daily meds. Disease Management/Concern/Wha: 10/06 UTI, DM Transitional Care Comment: 10/03 must choose [facility] for $25 a visit. Has brochures and will discuss with spouse. Forgetful and admits difficulty with word find occasionally. Wants to be more active at home with dogs, get back to her reading and her knitting. States she has her chair that she sleeps in, bathroom and kitchen on one level. has bar in bathroom and no steps to enter home. 10/06 Has spouse in home and toni down the street. Enc their presence so she is not alone as is a high fall risk with her short term memory. Needs enc. to go to BR q 2 hr, do exercises, supervision with meds, enc fluids, keeping O2 on, skin care. Copies to: RELL STONE MD, GENEVA E Oct 06, 2017 12:50
[2017-10-10] MEDS ORDERED: OXYGENHOME INH (15:35)
[2017-10-10] MEDS ORDERED: MAGN400C PO (16:36)
[2017-10-10] MEDS ORDERED: SULF1TAB24 PO (16:36)
--- NOTE | 2017-10-11 11:16 | Transitional Care Management ---
Assessment Cardiac: WNL Except Cardiac Comment: 10/06 feels a little shaky and weak. Review safety with ambulation if she is dizzy. BP's with [facility]. Little "puffy" in feet; enc exercising. Yesterday resumed spironolactone and lisinopril in hospital. Respiratory: WNL Except Respiratory Comment: 10/06 Spouse states she is on .5L daytime and he turns her to 2 L at hs. She sleeps in recliner. GI: Nutrition: WNL Except GI Comment: 10/06 Had bs of 130, 104, 97, 78 in hospital. has resumed metformin bid. Enc to do BS at home and record results to show PCP at next visit. Spouse cooks and asked about DM diet specifics. Review they eat little bread but like rice and potatoes; "Plate method" reviewed. He cooks low fat meats, fish, skinless chicken. Will add vege to each meal. Don't like salt. Had formed bm yesterday in hospital. Enc to report new diarrhea as she was on mult atb in hospital Constipation?: No : WNL Except Comment: 10/06 Almost total incont. Enc to go to bathroom q 2 hr to keep clean and dry. Review s/s UTI as she was septic in hospital. Enc 2 L fluids a day of water, crystal light not just coffee or gatorade Musculoskeletal, Exercise: WNL Except Musculoskeletal, Excercise Com: 10/06 [facility] with PT ordered. Enc to do exercise when commercials come on tv Mobility/Falls: WNL Except Mobility Comment: 10/06 feels weak. Has approx same distance to bathroom in home as she did in hospital. Enc q 2 hr bathroom trips to stay dry. Integumentary: WNL Except Integumentary Comment: 10/06 Generalized rash on trunk and arms is dull red today; uses oint when itchy. Has nystat powder for reddened groin area. Has gold morgan DM cream and Eucerin for dry legs. Cellulitis of R great toe is less red. Spouse clipped toe nails today being careful not to knick the skin; inspect daily Feeling of Well Being: WNL Except Feeling of Well Being Comment: 10/06 Review need for life alert type system as spouse working daily. He has applied for FMLA to work 3am to 9am daily. son in law states he will research this item on the internet. Spouse states she has had prehospital short term memory loss. Socialization: WNL Except Socialization Comment: 10/06 suggested daughter come over when she is alone in house, when spouse is working. States she will have to come to let the dogs out when expecting [facility]. Scheduled Follow-Up with [facility]: Yes (10/06 [facility] 10/08. No appt with Savanna yet) Community Resources/HHC: 10/06 [facility] expected Questions for Future PCP Visit: 10/06 Resume amlodipine? Followup labs: low platelets, Mag, Kcl TCM Discharge Criteria Medication Knowledge: 10/06 RX for levofloxacin filled and had first dose at home. Spouse admin her meds and has removed amlodipine from her regular daily meds. Disease Management/Concern/Wha: 10/06 UTI, DM Transitional Care Comment: 10/03 must choose [facility] for $25 a visit. Has brochures and will discuss with spouse. Forgetful and admits difficulty with word find occasionally. Wants to be more active at home with dogs, get back to her reading and her knitting. States she has her chair that she sleeps in, bathroom and kitchen on one level. has bar in bathroom and no steps to enter home. 10/06 Has spouse in home and toni down the street. Enc their presence so she is not alone as is a high fall risk with her short term memory. Needs enc. to go to BR q 2 hr, do exercises, supervision with meds, enc fluids, keeping O2 on, skin care. 10/11 unable to contact -left message SHRUTI THOMPSON Oct 11, 2017 11:16
--- NOTE | 2017-10-12 10:06 | Transitional Care Management ---
Assessment Cardiac: WNL Except Cardiac Comment: 10/06 feels a little shaky and weak. Review safety with ambulation if she is dizzy. BP's with [facility]. Little "puffy" in feet; enc exercising. Yesterday resumed spironolactone and lisinopril in hospital. Respiratory: WNL Except Respiratory Comment: 10/06 Spouse states she is on .5L daytime and he turns her to 2 L at hs. She sleeps in recliner. GI: Nutrition: WNL Except GI Comment: 10/06 Had bs of 130, 104, 97, 78 in hospital. has resumed metformin bid. Enc to do BS at home and record results to show PCP at next visit. Spouse cooks and asked about DM diet specifics. Review they eat little bread but like rice and potatoes; "Plate method" reviewed. He cooks low fat meats, fish, skinless chicken. Will add vege to each meal. Don't like salt. Had formed bm yesterday in hospital. Enc to report new diarrhea as she was on mult atb in hospital Constipation?: No : WNL Except Comment: 10/06 Almost total incont. Enc to go to bathroom q 2 hr to keep clean and dry. Review s/s UTI as she was septic in hospital. Enc 2 L fluids a day of water, crystal light not just coffee or gatorade Musculoskeletal, Exercise: WNL Except Musculoskeletal, Excercise Com: 10/06 [facility] with PT ordered. Enc to do exercise when commercials come on tv Mobility/Falls: WNL Except Mobility Comment: 10/06 feels weak. Has approx same distance to bathroom in home as she did in hospital. Enc q 2 hr bathroom trips to stay dry. Integumentary: WNL Except Integumentary Comment: 10/06 Generalized rash on trunk and arms is dull red today; uses oint when itchy. Has nystat powder for reddened groin area. Has gold morgan DM cream and Eucerin for dry legs. Cellulitis of R great toe is less red. Spouse clipped toe nails today being careful not to knick the skin; inspect daily Feeling of Well Being: WNL Except Feeling of Well Being Comment: 10/06 Review need for life alert type system as spouse working daily. He has applied for FMLA to work 3am to 9am daily. son in law states he will research this item on the internet. Spouse states she has had prehospital short term memory loss. Socialization: WNL Except Socialization Comment: 10/06 suggested daughter come over when she is alone in house, when spouse is working. States she will have to come to let the dogs out when expecting [facility]. Scheduled Follow-Up with [facility]: Yes (10/06 [facility] 10/08. No appt with Savanna yet) Community Resources/HHC: 10/06 [facility] expected Questions for Future PCP Visit: 10/06 Resume amlodipine? Followup labs: low platelets, Mag, Kcl TCM Discharge Criteria Medication Knowledge: 10/06 RX for levofloxacin filled and had first dose at home. Spouse admin her meds and has removed amlodipine from her regular daily meds. Disease Management/Concern/Wha: 10/06 UTI, DM Transitional Care Comment: 10/03 must choose [facility] for $25 a visit. Has brochures and will discuss with spouse. Forgetful and admits difficulty with word find occasionally. Wants to be more active at home with dogs, get back to her reading and her knitting. States she has her chair that she sleeps in, bathroom and kitchen on one level. has bar in bathroom and no steps to enter home. 10/06 Has spouse in home and toni down the street. Enc their presence so she is not alone as is a high fall risk with her short term memory. Needs enc. to go to BR q 2 hr, do exercises, supervision with meds, enc fluids, keeping O2 on, skin care. 10/11 unable to contact -left message 10/12 unable to contact SHRUTI THOMPSON Oct 12, 2017 10:05
--- NOTE | 2017-10-14 12:53 | Transitional Care Management ---
Assessment Visit Type: Telephone Visit Spoke with: Bharat Cardiac: WNL Except Cardiac Comment: 10/06 feels a little shaky and weak. Review safety with ambulation if she is dizzy. BP's with [facility]. Little "puffy" in feet; enc exercising. Yesterday resumed spironolactone and lisinopril in hospital. 10/14 no weakness or shaky. Respiratory: WNL Except Respiratory Comment: 10/06 Spouse states she is on .5L daytime and he turns her to 2 L at hs. She sleeps in recliner. GI: Nutrition: WNL Except GI Comment: 10/06 Had bs of 130, 104, 97, 78 in hospital. has resumed metformin bid. Enc to do BS at home and record results to show PCP at next visit. Spouse cooks and asked about DM diet specifics. Review they eat little bread but like rice and potatoes; "Plate method" reviewed. He cooks low fat meats, fish, skinless chicken. Will add vege to each meal. Don't like salt. Had formed bm yesterday in hospital. Enc to report new diarrhea as she was on mult atb in hospital 10/14 Blood sugars have been "good". Constipation?: No : WNL Except Comment: 10/06 Almost total incont. Enc to go to bathroom q 2 hr to keep clean and dry. Review s/s UTI as she was septic in hospital. Enc 2 L fluids a day of water, crystal light not just coffee or gatorade Musculoskeletal, Exercise: WNL Except Musculoskeletal, Excercise Com: 10/06 [facility] with PT ordered. Enc to do exercise when commercials come on tv 10/14 C evaled last week, but has not been back. Bharat expects thier call today. Mobility/Falls: WNL Except Mobility Comment: 10/06 feels weak. Has approx same distance to bathroom in home as she did in hospital. Enc q 2 hr bathroom trips to stay dry. Integumentary: WNL Except Integumentary Comment: 10/06 Generalized rash on trunk and arms is dull red today; uses oint when itchy. Has nystat powder for reddened groin area. Has gold morgan DM cream and Eucerin for dry legs. Cellulitis of R great toe is less red. Spouse clipped toe nails today being careful not to knick the skin; inspect daily 10/14 Rash is much better. Feeling of Well Being: WNL Except Feeling of Well Being Comment: 10/06 Review need for life alert type system as spouse working daily. He has applied for FMLA to work 3am to 9am daily. son in law states he will research this item on the internet. Spouse states she has had prehospital short term memory loss. Socialization: WNL Except Socialization Comment: 10/06 suggested daughter come over when she is alone in house, when spouse is working. States she will have to come to let the dogs out when expecting [facility]. Scheduled Follow-Up with Provi: Yes (10/14 No appt with Savanna yet, Appt 10/28 with Filemon to remove a kidney stone.) Community Resources/HHC: 10/06 [facility] expected Questions for Future PCP Visit: 10/06 Resume amlodipine? Followup labs: low platelets, Mag, Kcl Following Discharge Instructio: Yes TCM Discharge Criteria Medication Knowledge: 10/06 RX for levofloxacin filled and had first dose at home. Spouse admin her meds and has removed amlodipine from her regular daily meds. Disease Management/Concern/Wha: 10/06 UTI, DM Transitional Care Comment: 10/03 must choose [facility] for $25 a visit. Has brochures and will discuss with spouse. Forgetful and admits difficulty with word find occasionally. Wants to be more active at home with dogs, get back to her reading and her knitting. States she has her chair that she sleeps in, bathroom and kitchen on one level. has bar in bathroom and no steps to enter home. 10/06 Has spouse in home and toni down the street. Enc their presence so she is not alone as is a high fall risk with her short term memory. Needs enc. to go to q 2 hr, do exercises, supervision with meds, enc fluids, keeping O2 on, skin care. 10/11 unable to contact -left message 10/12 unable to contact 10/14 I spoke with Bharat, her . She is feeling at her baseline, Blood sugars "good". They are awaiting a relpy from [facility] about the services they will provide. Appt with Dr Colbert 10/28 about her kidney stone. JAY COLBERT Oct 14, 2017 12:53
[2017-10-14] MEDS ORDERED: MAGN400T36 PO (13:09)
--- NOTE | 2017-10-21 13:59 | Transitional Care Management ---
Assessment Cardiac: WNL Except Cardiac Comment: 10/06 feels a little shaky and weak. Review safety with ambulation if she is dizzy. BP's with C. Little "puffy" in feet; enc exercising. Yesterday resumed spironolactone and lisinopril in hospital. 10/14 no weakness or shaky. Respiratory: WNL Except Respiratory Comment: 10/06 Spouse states she is on .5L daytime and he turns her to 2 L at hs. She sleeps in recliner. GI: Nutrition: WNL Except GI Comment: 10/06 Had bs of 130, 104, 97, 78 in hospital. has resumed metformin bid. Enc to do BS at home and record results to show PCP at next visit. Spouse cooks and asked about DM diet specifics. Review they eat little bread but like rice and potatoes; "Plate method" reviewed. He cooks low fat meats, fish, skinless chicken. Will add vege to each meal. Don't like salt. Had formed bm yesterday in hospital. Enc to report new diarrhea as she was on mult atb in hospital 10/14 Blood sugars have been "good". Constipation?: No : WNL Except Comment: 10/06 Almost total incont. Enc to go to bathroom q 2 hr to keep clean and dry. Review s/s UTI as she was septic in hospital. Enc 2 L fluids a day of water, crystal light not just coffee or gatorade Musculoskeletal, Exercise: WNL Except Musculoskeletal, Excercise Com: 10/06 [facility] with PT ordered. Enc to do exercise when commercials come on tv 10/14 C evaled last week, but has not been back. Bharat expects thier call today. Mobility/Falls: WNL Except Mobility Comment: 10/06 feels weak. Has approx same distance to bathroom in home as she did in hospital. Enc q 2 hr bathroom trips to stay dry. Integumentary: WNL Except Integumentary Comment: 10/06 Generalized rash on trunk and arms is dull red today; uses oint when itchy. Has nystat powder for reddened groin area. Has gold morgan DM cream and Eucerin for dry legs. Cellulitis of R great toe is less red. Spouse clipped toe nails today being careful not to knick the skin; inspect daily 10/14 Rash is much better. Feeling of Well Being: WNL Except Feeling of Well Being Comment: 10/06 Review need for life alert type system as spouse working daily. He has applied for FMLA to work 3am to 9am daily. son in law states he will research this item on the internet. Spouse states she has had prehospital short term memory loss. Socialization: WNL Except Socialization Comment: 10/06 suggested daughter come over when she is alone in house, when spouse is working. States she will have to come to let the dogs out when expecting [facility]. Scheduled Follow-Up with Provi: Yes (10/14 No appt with Savanna yet, Appt 10/28 with Filemon to remove a kidney stone.) Community Resources/HHC: 10/06 [facility] expected Questions for Future PCP Visit: 10/06 Resume amlodipine? Followup labs: low platelets, Mag, Kcl Following Discharge Instructio: Yes TCM Discharge Criteria Medication Knowledge: 10/06 RX for levofloxacin filled and had first dose at home. Spouse admin her meds and has removed amlodipine from her regular daily meds. Disease Management/Concern/Wha: 10/06 UTI, DM Transitional Care Comment: 10/03 must choose [facility] for $25 a visit. Has brochures and will discuss with spouse. Forgetful and admits difficulty with word find occasionally. Wants to be more active at home with dogs, get back to her reading and her knitting. States she has her chair that she sleeps in, bathroom and kitchen on one level. has bar in bathroom and no steps to enter home. 10/06 Has spouse in home and toni down the street. Enc their presence so she is not alone as is a high fall risk with her short term memory. Needs enc. to go to q 2 hr, do exercises, supervision with meds, enc fluids, keeping O2 on, skin care. 10/11 unable to contact -left message 10/12 unable to contact 10/14 I spoke with Bharat, her . She is feeling at her baseline, Blood sugars "good". They are awaiting a relpy from [facility] about the services they will provide. Appt with Dr Colbert 10/28 about her kidney stone. 10/21 Left message CHRIS GRAVES Oct 21, 2017 13:58
--- NOTE | 2017-10-21 14:24 | Transitional Care Management ---
Assessment Visit Type: Telephone Visit Spoke with: Gianna Cardiac: WNL Except Cardiac Comment: 10/06 feels a little shaky and weak. Review safety with ambulation if she is dizzy. BP's with [facility]. Little "puffy" in feet; enc exercising. Yesterday resumed spironolactone and lisinopril in hospital. 10/14 no weakness or shaky. 10/21BP check at MD office Respiratory: WNL Except Respiratory Comment: 10/06 Spouse states she is on .5L daytime and he turns her to 2 L at hs. She sleeps in recliner. 10/21 still wearing O2 as prescribed. doesn't think it has helped her think more clear or bemore energetic but is not sob GI: Nutrition: WNL Except GI Comment: 10/06 Had bs of 130, 104, 97, 78 in hospital. has resumed metformin bid. Enc to do BS at home and record results to show PCP at next visit. Spouse cooks and asked about DM diet specifics. Review they eat little bread but like rice and potatoes; "Plate method" reviewed. He cooks low fat meats, fish, skinless chicken. Will add vege to each meal. Don't like salt. Had formed bm yesterday in hospital. Enc to report new diarrhea as she was on mult atb in hospital 10/14 Blood sugars have been "good". 10/21 denies any diarrhea from atb. States they don't have a glucometer. Since she is only on metformin and A1C was only 6.8 enc. to ask PCP if they should be checking at home routinely Constipation?: No : WNL Except Comment: 10/06 Almost total incont. Enc to go to bathroom q 2 hr to keep clean and dry. Review s/s UTI as she was septic in hospital. Enc 2 L fluids a day of water, crystal light not just coffee or gatorade 10/21 states toni gave her lots of crystal light and she likes most flavors. voiding lots in am after diuretic Musculoskeletal, Exercise: WNL Except Musculoskeletal, Excercise Com: 10/[address] [facility] with PT ordered. Enc to do exercise when commercials come on tv 10/14 C evaled last week, but has not been back. Bharat expects thier call today. 10/21 still weak and shaky. [facility] did eval upon dc Mobility/Falls: WNL Except Mobility Comment: 10/06 feels weak. Has approx same distance to bathroom in home as she did in hospital. Enc q 2 hr bathroom trips to stay dry. Integumentary: WNL Except Integumentary Comment: 10/06 Generalized rash on trunk and arms is dull red today; uses oint when itchy. Has nystat powder for reddened groin area. Has gold morgan DM cream and Eucerin for dry legs. Cellulitis of R great toe is less red. Spouse clipped toe nails today being careful not to knick the skin; inspect daily 10/14 Rash is much better. 10/21 states skin is "peeling like crazy". had reddened skin in hospital over most of body. Enc more frequent trips to bathroom, q 2 hr , especially in am after diuretic Feeling of Well Being: WNL Except Feeling of Well Being Comment: 10/06 Review need for life alert type system as spouse working daily. He has applied for [employer] to work 3am to 9am daily. son in law states he will research this item on the internet. Spouse states she has had prehospital short term memory loss. 10/21 S-I-L has not found life alert system yet; his (pt toni) is in hospital in [place] Socialization: WNL Except Socialization Comment: 10/06 suggested daughter come over when she is alone in house, when spouse is working. States she will have to come to let the dogs out when expecting [facility]. Scheduled Follow-Up with [facility]: Yes (10/21 saw Savanna, started Mag supplement Appt 10/28 with Filemon to remove a kidney stone.) [facility] and never returned. Destinee at [facility] states they didn't want to "waste her visits..her insurance is stingy" and are coming Weds, did not come last week. usually call day beforeto schedule but she will call today to explain to them Questions for Future PCP Visit: 10/06 Resume amlodipine? Followup labs: low platelets, Mag, Kcl 10/21 check blood sugars at home. [facility] for PT Following Discharge Instructio: Yes TCM Discharge Criteria Medication Knowledge: 10/06 RX for levofloxacin filled and had first dose at home. Spouse admin her meds and has removed amlodipine from her regular daily meds. 10/[address] Corrales started Mag supp Disease Management/Concern/Wha: 10/06 UTI, DM Transitional Care Comment: 10/[address] [facility] for $25 a visit. Has brochures and will discuss with spouse. Forgetful and admits difficulty with word find occasionally. Wants to be more active at home with dogs, get back to her reading and her knitting. States she has her chair that she sleeps in, bathroom and kitchen on one level. has bar in bathroom and no steps to enter home. 10/06 Has spouse in home and toni down the street. Enc their presence so she is not alone as is a high fall risk with her short term memory. Needs enc. to go to q 2 hr, do exercises, supervision with meds, enc fluids, keeping O2 on, skin care. 10/11 unable to contact -left message 10/12 unable to contact 10/14 I spoke with Bharat, her . She is feeling at her baseline, Blood sugars "good". They are awaiting a relpy from [facility] about the services they will provide. Appt with Dr Colbert 10/28 about her kidney stone. 10/21 Still weak but skin better and getting around the same. Using O2 as rx. no check bp to eval need for restarting amlodipine. Called [facility] re: ordered services. CHRIS GRAVES Oct 21, 2017 14:24
--- NOTE | 2017-10-29 11:57 | Transitional Care Management ---
Assessment Visit Type: Telephone Visit (10/29 [facility]) Cardiac: WNL Except Cardiac Comment: 10/06 feels a little shaky and weak. Review safety with ambulation if she is dizzy. BP's with [facility]. Little "puffy" in feet; enc exercising. Yesterday resumed spironolactone and lisinopril in hospital. 10/14 no weakness or shaky. 10/29 Dens CP at this time though is weak and shakey 10/21BP check at MD office Respiratory: WNL Except Respiratory Comment: 10/06 Spouse states she is on .5L daytime and he turns her to 2 L at hs. She sleeps in recliner. 10/21 still wearing O2 as prescribed. doesn't think it has helped her think more clear or bemore energetic but is not sob 10/29 uses O2 24/7 2L at HS and 1/2 L during the day. Denies SOB at this time GI: Nutrition: WNL Except GI Comment: 10/06 Had bs of 130, 104, 97, 78 in hospital. has resumed metformin bid. Enc to do BS at home and record results to show PCP at next visit. Spouse cooks and asked about DM diet specifics. Review they eat little bread but like rice and potatoes; "Plate method" reviewed. He cooks low fat meats, fish, skinless chicken. Will add vege to each meal. Don't like salt. Had formed bm yesterday in hospital. Enc to report new diarrhea as she was on mult atb in hospital 10/14 Blood sugars have been "good". 10/21 denies any diarrhea from atb. States they don't have a glucometer. Since she is only on metformin and A1C was only 6.8 enc. to ask PCP if they should be checking at home routinely 10/29 Diabetic diet not checking BS Constipation?: No : WNL Except Comment: 10/06 Almost total incont. Enc to go to bathroom q 2 hr to keep clean and dry. Review s/s UTI as she was septic in hospital. Enc 2 L fluids a day of water, crystal light not just coffee or gatorade 10/21 states toni gave her lots of crystal light and she likes most flavors. voiding lots in am after diuretic 10/29 voiding frequently. OR from DR Flock for 10/28 was cancelled d/t she had not seen a Leather Belt Maker. Having frequent BMS Musculoskeletal, Exercise: WNL Except Musculoskeletal, Excercise Com: 10/06 [facility] with PT ordered. Enc to do exercise when commercials come on tv 10/14 [facility] evaled last week, but has not been back. Bharat expects thier call today. 10/21 still weak and shaky. [facility] did eval upon dc Mobility/Falls: WNL Except Mobility Comment: 10/06 feels weak. Has approx same distance to bathroom in home as she did in hospital. Enc q 2 hr bathroom trips to stay dry. 10/29 uses WC mostly and walker some of the time in home as she is to weak and shakey to use walker Integumentary: WNL Except Integumentary Comment: 10/06 Generalized rash on trunk and arms is dull red today; uses oint when itchy. Has nystat powder for reddened groin area. Has gold morgan DM cream and Eucerin for dry legs. Cellulitis of R great toe is less red. Spouse clipped toe nails today being careful not to knick the skin; inspect daily 10/14 Rash is much better. 10/29 Rash is improving-not as sosre and itchy 10/21 states skin is "peeling like crazy". had reddened skin in hospital over most of body. Enc more frequent trips to bathroom, q 2 hr , especially in am after diuretic Feeling of Well Being: WNL Except Feeling of Well Being Comment: 10/06 Review need for life alert type system as spouse working daily. He has applied for [employer] to work 3am to 9am daily. son in law states he will research this item on the internet. Spouse states she has had prehospital short term memory loss. 10/21 S-I-L has not found life alert system yet; his (pt toni) is in hospital in [place] Socialization: WNL Except Socialization Comment: 10/06 suggested daughter come over when she is alone in house, when spouse is working. States she will have to come to let the dogs out when expecting HHC. Scheduled Follow-Up with Provi: No (10/29 Has not FU w Dr Ferraro-enc her to call today and get an appt also get an aoot for Cardiolgist who comes to [place]) [facility] Resources[facility]C: 10/06 [facility]. Destinee at [facility] states they didn't want to "waste her visits..her insurance is stingy" and are coming [place], did not come last week. usually call day beforeto schedule but she will call today to explain to them Questions for Future PCP Visit: 10/06 Resume amlodipine? Followup labs: low platelets, Mag, Kcl 10/21 check blood sugars at home. [facility] for PT Following Discharge Instructio: Yes TCM Discharge Criteria Medication Knowledge: 10/06 RX for levofloxacin filled and had first dose at home. Spouse admin her meds and has removed amlodipine from her regular daily meds. 10/[address] Corrales started Mag supp Disease Management/Concern/Wha: 10/06 UTI, DM Transitional Care Comment: 10/03 must choose [facility] for $25 a visit. Has brochures and will discuss with spouse. Forgetful and admits difficulty with word find occasionally. Wants to be more active at home with dogs, get back to her reading and her knitting. States she has her chair that she sleeps in, bathroom and kitchen on one level. has bar in bathroom and no steps to enter home. 10/06 Has spouse in home and toni down the street. Enc their presence so she is not alone as is a high fall risk with her short term memory. Needs enc. to go to q 2 hr, do exercises, supervision with meds, enc fluids, keeping O2 on, skin care. 10/11 unable to contact -left message 10/12 unable to contact 10/14 I spoke with Bharat, her . She is feeling at her baseline, Blood sugars "good". They are awaiting a relpy from [facility] about the services they will provide. Appt with Dr Colbert 10/28 about her kidney stone. 10/21 Still weak but skin better and getting around the same. Using O2 as rx. no check bp to eval need for restarting amlodipine. Called [facility] re: ordered services. 10/29 Did not have OR per Dr Colbert yesterday d/t she had not seen a Leather Belt Maker. Enc her to get an appt chloe so she could het the OR. She also needs to FU w Dr Ferraro. I asked her to TT Dr Ferraro about ordering her aGlucometer and getting one at [facility] in order to check BS once inwhile to she where she is. She has not gotten a Life alert at this time. [id number] is to be dealing with this. Copies to: RELL CORRALES MD ; SHRUTI THOMPSON Oct 29, 2017 11:57
[2017-11-05] MEDS ORDERED: LEVO150T78 PO (15:47)
[2017-11-05] MEDS ORDERED: LISI20TA29 PO (15:47)
[2017-11-05] MEDS ORDERED: METO50TA19 PO (15:47)
[2017-11-05] MEDS ORDERED: AMLO-113 PO (15:47)
--- NOTE | 2017-11-06 14:38 | Transitional Care Management ---
Assessment Visit Type: Telephone Visit Spoke with: [place] Cardiac: WNL Except Cardiac Comment: 10/06 feels a little shaky and weak. Review safety with ambulation if she is dizzy. BP's with [facility]. Little "puffy" in feet; enc exercising. Yesterday resumed spironolactone and lisinopril in hospital. 10/14 no weakness or shaky. 10/29 Dens CP at this time though is weak and shakey 10/21BP check at MD office 11/06 Still weak and skaky. BP has been a little low, Dr Ferraro aware. Respiratory: WNL Except Respiratory Comment: 10/06 Spouse states she is on .5L daytime and he turns her to 2 L at hs. She sleeps in recliner. 10/21 still wearing O2 as prescribed. doesn't think it has helped her think more clear or bemore energetic but is not sob 10/29 uses O2 24/7 2L at HS and 1/2 L during the day. Denies SOB at this time GI: Nutrition: WNL Except GI Comment: 10/06 Had bs of 130, 104, 97, 78 in hospital. has resumed metformin bid. Enc to do BS at home and record results to show PCP at next visit. Spouse cooks and asked about DM diet specifics. Review they eat little bread but like rice and potatoes; "Plate method" reviewed. He cooks low fat meats, fish, skinless chicken. Will add vege to each meal. Don't like salt. Had formed bm yesterday in hospital. Enc to report new diarrhea as she was on mult atb in hospital 10/14 Blood sugars have been "good". 10/21 denies any diarrhea from atb. States they don't have a glucometer. Since she is only on metformin and A1C was only 6.8 enc. to ask PCP if they should be checking at home routinely 10/29 Diabetic diet not checking BS 11/06 Dr Ferraro ok'd her to not check her blood sugars. Constipation?: No : WNL Except Comment: 10/06 Almost total incont. Enc to go to bathroom q 2 hr to keep clean and dry. Review s/s UTI as she was septic in hospital. Enc 2 L fluids a day of water, crystal light not just coffee or gatorade 10/21 states toni gave her lots of crystal light and she likes most flavors. voiding lots in am after diuretic 10/29 voiding frequently. OR from DR Colbert for 10/28 was cancelled d/t she had not seen a Human Resources Office Manager. Having frequent BMS Musculoskeletal, Exercise: WNL Except Musculoskeletal, Excercise Com: 10/06 C with PT ordered. Enc to do exercise when commercials come on tv 10/14 C evaled last week, but has not been back. Bharat expects thier call today. 10/21 still weak and shaky. C did eval upon dc Mobility/Falls: WNL Except Mobility Comment: 10/06 feels weak. Has approx same distance to bathroom in home as she did in hospital. Enc q 2 hr bathroom trips to stay dry. 10/29 uses WC mostly and walker some of the time in home as she is to weak and shakey to use walker Integumentary: WNL Except Integumentary Comment: 10/06 Generalized rash on trunk and arms is dull red today; uses oint when itchy. Has nystat powder for reddened groin area. Has gold morgan DM cream and Eucerin for dry legs. Cellulitis of R great toe is less red. Spouse clipped toe nails today being careful not to knick the skin; inspect daily 10/14 Rash is much better. 10/29 Rash is improving-not as sosre and itchy 10/21 states skin is "peeling like crazy". had reddened skin in hospital over most of body. Enc more frequent trips to bathroom, q 2 hr , especially in am after diuretic Feeling of Well Being: WNL Except Feeling of Well Being Comment: 10/06 Review need for life alert type system as spouse working daily. He has applied for [employer] to work 3am to 9am daily. son in law states he will research this item on the internet. Spouse states she has had prehospital short term memory loss. 10/21 S-I-L has not found life alert system yet; his (pt toni) is in hospital in [place] 11/06 No life alert. Socialization: WNL Except Socialization Comment: 10/06 suggested daughter come over when she is alone in house, when spouse is working. States she will have to come to let the dogs out when expecting HHC. Scheduled Follow-Up with Provi: Yes (11/06 Appt with a verify rep this week.) Community Resources/HHC: 10/06 [facility] expected 10/21 states C did eval and never returned. Destinee at [facility] states they didn't want to "waste her visits..her insurance is stingy" and are coming [place], did not come last week. usually call day beforeto schedule but she will call today to explain to them Questions for Future PCP Visit: 10/06 Resume amlodipine? Followup labs: low platelets, Mag, Kcl 10/21 check blood sugars at home. [facility] for PT Following Discharge Instructio: Yes TCM Discharge Criteria Medication Knowledge: 10/06 RX for levofloxacin filled and had first dose at home. Spouse admin her meds and has removed amlodipine from her regular daily meds. 10/[address] Corrales started Mag supp Disease Management/Concern/Wha: 10/06 UTI, DM Transitional Care Comment: 10/03 must choose [facility] for $25 a visit. Has brochures and will discuss with spouse. Forgetful and admits difficulty with word find occasionally. Wants to be more active at home with dogs, get back to her reading and her knitting. States she has her chair that she sleeps in, bathroom and kitchen on one level. has bar in bathroom and no steps to enter home. 10/06 Has spouse in home and toni down the street. Enc their presence so she is not alone as is a high fall risk with her short term memory. Needs enc. to go to q 2 hr, do exercises, supervision with meds, enc fluids, keeping O2 on, skin care. 10/11 unable to contact -left message 10/12 unable to contact 10/14 I spoke with Bharat, her . She is feeling at her baseline, Blood sugars "good". They are awaiting a relpy from [facility] about the services they will provide. Appt with Dr Colbert 10/28 about her kidney stone. 10/21 Still weak but skin better and getting around the same. Using O2 as rx. no check bp to eval need for restarting amlodipine. Called [facility] re: ordered services. 10/29 Did not have OR per Dr Colbert yesterday d/t she had not seen a Human Resources Office Manager. Enc her to get an appt chloe so she could het the OR. She also needs to FU w Dr Ferraro. I asked her to TT Dr Ferraro about ordering her aGlucometer and getting one at [facility] in order to check BS once inwhile to she where she is. She has not gotten a Life alert at this time. [id number] is to be dealing with this. 11/06 Dr Ferraro ok'd her not to check blood sugars. She has appt with cardiology this week. JAY COLBERT Nov 06, 2017 14:38
--- NOTE | 2017-11-12 12:04 | Transitional Care Management ---
Assessment Cardiac: WNL Except Cardiac Comment: 10/06 feels a little shaky and weak. Review safety with ambulation if she is dizzy. BP's with [facility]. Little "puffy" in feet; enc exercising. Yesterday resumed spironolactone and lisinopril in hospital. 10/14 no weakness or shaky. 10/29 Dens CP at this time though is weak and shakey 10/21BP check at MD office 11/06 Still weak and skaky. BP has been a little low, Dr Ferraro aware. Respiratory: WNL Except Respiratory Comment: 10/06 Spouse states she is on .5L daytime and he turns her to 2 L at hs. She sleeps in recliner. 10/21 still wearing O2 as prescribed. doesn't think it has helped her think more clear or bemore energetic but is not sob 10/29 uses O2 24/7 2L at HS and 1/2 L during the day. Denies SOB at this time GI: Nutrition: WNL Except GI Comment: 10/06 Had bs of 130, 104, 97, 78 in hospital. has resumed metformin bid. Enc to do BS at home and record results to show PCP at next visit. Spouse cooks and asked about DM diet specifics. Review they eat little bread but like rice and potatoes; "Plate method" reviewed. He cooks low fat meats, fish, skinless chicken. Will add vege to each meal. Don't like salt. Had formed bm yesterday in hospital. Enc to report new diarrhea as she was on mult atb in hospital 10/14 Blood sugars have been "good". 10/21 denies any diarrhea from atb. States they don't have a glucometer. Since she is only on metformin and A1C was only 6.8 enc. to ask PCP if they should be checking at home routinely 10/29 Diabetic diet not checking BS 11/06 Dr Ferraro ok'd her to not check her blood sugars. Constipation?: No : WNL Except Comment: 10/06 Almost total incont. Enc to go to bathroom q 2 hr to keep clean and dry. Review s/s UTI as she was septic in hospital. Enc 2 L fluids a day of water, crystal light not just coffee or gatorade 10/21 states toni gave her lots of crystal light and she likes most flavors. voiding lots in am after diuretic 10/29 voiding frequently. OR from DR Colbert for 10/28 was cancelled d/t she had not seen a [employer]. Having frequent BMS Musculoskeletal, Exercise: WNL Except Musculoskeletal, Excercise Com: 10/06 [facility] with PT ordered. Enc to do exercise when commercials come on tv 10/14 C evaled last week, but has not been back. Bharat expects thier call today. 10/21 still weak and shaky. [facility]HC did eval upon dc Mobility/Falls: WNL Except Mobility Comment: 10/06 feels weak. Has approx same distance to bathroom in home as she did in hospital. Enc q 2 hr bathroom trips to stay dry. 10/29 uses WC mostly and walker some of the time in home as she is to weak and shakey to use walker Integumentary: WNL Except Integumentary Comment: 10/06 Generalized rash on trunk and arms is dull red today; uses oint when itchy. Has nystat powder for reddened groin area. Has gold morgan DM cream and Eucerin for dry legs. Cellulitis of R great toe is less red. Spouse clipped toe nails today being careful not to knick the skin; inspect daily 10/14 Rash is much better. 10/29 Rash is improving-not as sosre and itchy 10/21 states skin is "peeling like crazy". had reddened skin in hospital over most of body. Enc more frequent trips to bathroom, q 2 hr , especially in am after diuretic Feeling of Well Being: WNL Except Feeling of Well Being Comment: 10/06 Review need for life alert type system as spouse working daily. He has applied for [employer] to work 3am to 9am daily. son in law states he will research this item on the internet. Spouse states she has had prehospital short term memory loss. 10/21 S-I-L has not found life alert system yet; his (pt toni) is in hospital in [place] 11/06 No life alert. Socialization: WNL Except Socialization Comment: 10/06 suggested daughter come over when she is alone in house, when spouse is working. States she will have to come to let the dogs out when expecting HHC. Scheduled Follow-Up with Provi: Yes (11/06 Appt with a nut picker this week.) Community Resources/C: 10/06 [facility] expected 10/21 states C did eval and never returned. Destinee at [facility] states they didn't want to "waste her visits..her insurance is stingy" and are coming [place], did not come last week. usually call day beforeto schedule but she will call today to explain to them Questions for Future PCP Visit: 10/06 Resume amlodipine? Followup labs: low platelets, Mag, Kcl 10/21 check blood sugars at home. [facility] for PT Following Discharge Instructio: Yes TCM Discharge Criteria Medication Knowledge: 10/06 RX for levofloxacin filled and had first dose at home. Spouse admin her meds and has removed amlodipine from her regular daily meds. 10/[address] Corrales started Mag supp Disease Management/Concern/Wha: 10/06 UTI, DM Transitional Care Comment: 10/03 must choose [facility] for $25 a visit. Has brochures and will discuss with spouse. Forgetful and admits difficulty with word find occasionally. Wants to be more active at home with dogs, get back to her reading and her knitting. States she has her chair that she sleeps in, bathroom and kitchen on one level. has bar in bathroom and no steps to enter home. 10/06 Has spouse in home and toni down the street. Enc their presence so she is not alone as is a high fall risk with her short term memory. Needs enc. to go to q 2 hr, do exercises, supervision with meds, enc fluids, keeping O2 on, skin care. 10/11 unable to contact -left message 10/12 unable to contact 10/14 I spoke with Bharat, her . She is feeling at her baseline, Blood sugars "good". They are awaiting a relpy from [facility] about the services they will provide. Appt with Dr Colbert 10/28 about her kidney stone. 10/21 Still weak but skin better and getting around the same. Using O2 as rx. no check bp to eval need for restarting amlodipine. Called [facility] re: ordered services. 10/29 Did not have OR per Dr Colbert yesterday d/t she had not seen a [employer]. Enc her to get an appt chloe so she could het the OR. She also needs to FU w Dr Ferraro. I asked her to TT Dr Ferraro about ordering her aGlucometer and getting one at [facility] in order to check BS once inwhile to she where she is. She has not gotten a Life alert at this time. [id number] is to be dealing with this. 11/06 Dr Ferraro ok'd her not to check blood sugars. She has appt with cardiology this week. 11/12 Doing OK-has an appt with the nut picker from [place] Wednesday 11/15 to get approval for stent removal and stones removed. DM status quo. Copies to: RELL CORRALES MD; GOMEZ FUNEZ MD ; SHRUTI THOMPSON Nov 12, 2017 12:04
--- NOTE | 2017-11-20 11:10 | Transitional Care Management ---
Assessment Cardiac: WNL Except Cardiac Comment: 10/06 feels a little shaky and weak. Review safety with ambulation if she is dizzy. BP's with [facility]. Little "puffy" in feet; enc exercising. Yesterday resumed spironolactone and lisinopril in hospital. 10/14 no weakness or shaky. 10/29 Dens CP at this time though is weak and shakey 10/21BP check at MD office 11/06 Still weak and skaky. BP has been a little low, Dr Ferraro aware. Respiratory: WNL Except Respiratory Comment: 10/06 Spouse states she is on .5L daytime and he turns her to 2 L at hs. She sleeps in recliner. 10/21 still wearing O2 as prescribed. doesn't think it has helped her think more clear or bemore energetic but is not sob 10/29 uses O2 24/7 2L at HS and 1/2 L during the day. Denies SOB at this time GI: Nutrition: WNL Except GI Comment: 10/06 Had bs of 130, 104, 97, 78 in hospital. has resumed metformin bid. Enc to do BS at home and record results to show PCP at next visit. Spouse cooks and asked about DM diet specifics. Review they eat little bread but like rice and potatoes; "Plate method" reviewed. He cooks low fat meats, fish, skinless chicken. Will add vege to each meal. Don't like salt. Had formed bm yesterday in hospital. Enc to report new diarrhea as she was on mult atb in hospital 10/14 Blood sugars have been "good". 10/21 denies any diarrhea from atb. States they don't have a glucometer. Since she is only on metformin and A1C was only 6.8 enc. to ask PCP if they should be checking at home routinely 10/29 Diabetic diet not checking BS 11/06 Dr Ferraro ok'd her to not check her blood sugars. Constipation?: No : WNL Except Comment: 10/06 Almost total incont. Enc to go to bathroom q 2 hr to keep clean and dry. Review s/s UTI as she was septic in hospital. Enc 2 L fluids a day of water, crystal light not just coffee or gatorade 10/21 states toni gave her lots of crystal light and she likes most flavors. voiding lots in am after diuretic 10/29 voiding frequently. OR from DR Colbert for 10/28 was cancelled d/t she had not seen a Planner Chief. Having frequent BMS Musculoskeletal, Exercise: WNL Except Musculoskeletal, Excercise Com: 10/06 [facility] with PT ordered. Enc to do exercise when commercials come on tv 10/14 C evaled last week, but has not been back. Bharat expects thier call today. 10/21 still weak and shaky. [facility] did eval upon dc Mobility/Falls: WNL Except Mobility Comment: 10/06 feels weak. Has approx same distance to bathroom in home as she did in hospital. Enc q 2 hr bathroom trips to stay dry. 10/29 uses WC mostly and walker some of the time in home as she is to weak and shakey to use walker Integumentary: WNL Except Integumentary Comment: 10/06 Generalized rash on trunk and arms is dull red today; uses oint when itchy. Has nystat powder for reddened groin area. Has gold morgan DM cream and Eucerin for dry legs. Cellulitis of R great toe is less red. Spouse clipped toe nails today being careful not to knick the skin; inspect daily 10/14 Rash is much better. 10/29 Rash is improving-not as sosre and itchy 10/21 states skin is "peeling like crazy". had reddened skin in hospital over most of body. Enc more frequent trips to bathroom, q 2 hr , especially in am after diuretic Feeling of Well Being: WNL Except Feeling of Well Being Comment: 10/06 Review need for life alert type system as spouse working daily. He has applied for [employer] to work 3am to 9am daily. son in law states he will research this item on the internet. Spouse states she has had prehospital short term memory loss. 10/21 S-I-L has not found life alert system yet; his (pt toni) is in hospital in [place] 11/06 No life alert. Socialization: WNL Except Socialization Comment: 10/06 suggested daughter come over when she is alone in house, when spouse is working. States she will have to come to let the dogs out when expecting [facility]. Scheduled Follow-Up with Provi: Yes (11/06 Appt with a fabricating machine operator this week.) Community Resources/C: 10/06 [facility] expected 10/21 states C did eval and never returned. Destinee at [facility] states they didn't want to "waste her visits..her insurance is stingy" and are coming [place], did not come last week. usually call day beforeto schedule but she will call today to explain to them Questions for Future PCP Visit: 10/06 Resume amlodipine? Followup labs: low platelets, Mag, Kcl 10/21 check blood sugars at home. [facility] for PT Following Discharge Instructio: Yes TCM Discharge Criteria Medication Knowledge: 10/06 RX for levofloxacin filled and had first dose at home. Spouse admin her meds and has removed amlodipine from her regular daily meds. 10/[address] Corrales started Mag supp Disease Management/Concern/Wha: 10/06 UTI, DM Transitional Care Comment: 10/[address] [facility] for $25 a visit. Has brochures and will discuss with spouse. Forgetful and admits difficulty with word find occasionally. Wants to be more active at home with dogs, get back to her reading and her knitting. States she has her chair that she sleeps in, bathroom and kitchen on one level. has bar in bathroom and no steps to enter home. 10/06 Has spouse in home and toni down the street. Enc their presence so she is not alone as is a high fall risk with her short term memory. Needs enc. to go to q 2 hr, do exercises, supervision with meds, enc fluids, keeping O2 on, skin care. 10/11 unable to contact -left message 10/12 unable to contact 10/14 I spoke with Bharat, her . She is feeling at her baseline, Blood sugars "good". They are awaiting a relpy from [facility] about the services they will provide. Appt with Dr Colbert 10/28 about her kidney stone. 10/21 Still weak but skin better and getting around the same. Using O2 as rx. no check bp to eval need for restarting amlodipine. Called [facility] re: ordered services. 10/29 Did not have OR per Dr Colbert yesterday d/t she had not seen a Planner Chief. Enc her to get an appt chloe so she could het the OR. She also needs to FU w Dr Ferraro. I asked her to TT Dr Ferraro about ordering her aGlucometer and getting one at [facility] in order to check BS once inwhile to she where she is. She has not gotten a Life alert at this time. [id number]-[id number] is to be dealing with this. 11/06 Dr Ferraro ok'd her not to check blood sugars. She has appt with cardiology this week. 11/12 Doing OK-has an appt with the fabricating machine operator from [place] Wednesday 11/15 to get approval for stent removal and stones removed. DM status quo. 11/20 Saw Planner Chief on 11/15-needs a stress test befor she can have the stints removed which she will have on Dec 04. then will have stoees removed. Otherwise doing pretty good" Denies any chills or fevers. No changes in DM. Copies to: RELL CORRALES MD ; SHRUTI THOMPSON Nov 20, 2017 11:10
--- NOTE | 2017-11-28 14:08 | Transitional Care Management ---
Assessment Visit Type: Telephone Visit (11/28 Bharat) Cardiac: WNL Except Cardiac Comment: 10/06 feels a little shaky and weak. Review safety with ambulation if she is dizzy. BP's with [facility]. Little "puffy" in feet; enc exercising. Yesterday resumed spironolactone and lisinopril in hospital. 10/14 no weakness or shaky. 10/29 Dens CP at this time though is weak and shakey 10/21BP check at MD office 11/06 Still weak and skaky. BP has been a little low, Dr Ferraro aware. Respiratory: WNL Except Respiratory Comment: 10/06 Spouse states she is on .5L daytime and he turns her to 2 L at hs. She sleeps in recliner. 10/21 still wearing O2 as prescribed. doesn't think it has helped her think more clear or bemore energetic but is not sob 10/29 uses O2 24/7 2L at HS and 1/2 L during the day. Denies SOB at this time GI: Nutrition: WNL Except GI Comment: 10/06 Had bs of 130, 104, 97, 78 in hospital. has resumed metformin bid. Enc to do BS at home and record results to show PCP at next visit. Spouse cooks and asked about DM diet specifics. Review they eat little bread but like rice and potatoes; "Plate method" reviewed. He cooks low fat meats, fish, skinless chicken. Will add vege to each meal. Don't like salt. Had formed bm yesterday in hospital. Enc to report new diarrhea as she was on mult atb in hospital 10/14 Blood sugars have been "good". 10/21 denies any diarrhea from atb. States they don't have a glucometer. Since she is only on metformin and A1C was only 6.8 enc. to ask PCP if they should be checking at home routinely 10/29 Diabetic diet not checking BS 11/06 Dr Ferraro ok'd her to not check her blood sugars. Constipation?: No : WNL Except Comment: 10/06 Almost total incont. Enc to go to bathroom q 2 hr to keep clean and dry. Review s/s UTI as she was septic in hospital. Enc 2 L fluids a day of water, crystal light not just coffee or gatorade 10/21 states toni gave her lots of crystal light and she likes most flavors. voiding lots in am after diuretic 10/29 voiding frequently. OR from DR Colbert for 10/28 was cancelled d/t she had not seen a Life Coach. Having frequent BMS Musculoskeletal, Exercise: WNL Except Musculoskeletal, Excercise Com: 10/06 [facility] with PT ordered. Enc to do exercise when commercials come on tv 10/14 [facility] evaled last week, but has not been back. Bharat expects thier call today. 10/21 still weak and shaky. [facility] did eval upon dc Mobility/Falls: WNL Except Mobility Comment: 10/06 feels weak. Has approx same distance to bathroom in home as she did in hospital. Enc q 2 hr bathroom trips to stay dry. 10/29 uses WC mostly and walker some of the time in home as she is to weak and shakey to use walker Integumentary: WNL Except Integumentary Comment: 10/06 Generalized rash on trunk and arms is dull red today; uses oint when itchy. Has nystat powder for reddened groin area. Has gold morgan DM cream and Eucerin for dry legs. Cellulitis of R great toe is less red. Spouse clipped toe nails today being careful not to knick the skin; inspect daily 10/14 Rash is much better. 10/29 Rash is improving-not as sosre and itchy 10/21 states skin is "peeling like crazy". had reddened skin in hospital over most of body. Enc more frequent trips to bathroom, q 2 hr , especially in am after diuretic Feeling of Well Being: WNL Except Feeling of Well Being Comment: 10/06 Review need for life alert type system as spouse working daily. He has applied for [employer] to work 3am to 9am daily. son in law states he will research this item on the internet. Spouse states she has had prehospital short term memory loss. 10/21 S-I-L has not found life alert system yet; his (pt toni) is in hospital in [place] 11/06 No life alert. Socialization: WNL Except Socialization Comment: 10/06 suggested daughter come over when she is alone in house, when spouse is working. States she will have to come to let the dogs out when expecting C. Scheduled Follow-Up with Provi: Yes (11/06 Appt with a transfer station attendant this week.) Community Resources/HHC: 10/06 [facility] expected 10/21 states C did eval and never returned. Destinee at [facility] states they didn't want to "waste her visits..her insurance is stingy" and are coming [place], did not come last week. usually call day beforeto schedule but she will call today to explain to them Questions for Future PCP Visit: 10/06 Resume amlodipine? Followup labs: low platelets, Mag, Kcl 10/21 check blood sugars at home. [facility] for PT Following Discharge Instructio: Yes TCM Discharge Criteria Medication Knowledge: 10/06 RX for levofloxacin filled and had first dose at home. Spouse admin her meds and has removed amlodipine from her regular daily meds. 10/[address] Corrales started Mag supp Disease Management/Concern/Wha: 10/06 UTI, DM Transitional Care Comment: 10/03 must choose [facility] for $25 a visit. Has brochures and will discuss with spouse. Forgetful and admits difficulty with word find occasionally. Wants to be more active at home with dogs, get back to her reading and her knitting. States she has her chair that she sleeps in, bathroom and kitchen on one level. has bar in bathroom and no steps to enter home. 10/06 Has spouse in home and toni down the street. Enc their presence so she is not alone as is a high fall risk with her short term memory. Needs enc. to go to q 2 hr, do exercises, supervision with meds, enc fluids, keeping O2 on, skin care. 10/11 unable to contact -left message 10/12 unable to contact 10/14 I spoke with Bharat, her . She is feeling at her baseline, Blood sugars "good". They are awaiting a relpy from [facility] about the services they will provide. Appt with Dr Colbert 10/28 about her kidney stone. 10/21 Still weak but skin better and getting around the same. Using O2 as rx. no check bp to eval need for restarting amlodipine. Called [facility] re: ordered services. 10/29 Did not have OR per Dr Colbert yesterday d/t she had not seen a Life Coach. Enc her to get an appt chloe so she could het the OR. She also needs to FU w Dr Ferraro. I asked her to TT Dr Ferraro about ordering her aGlucometer and getting one at [facility] in order to check BS once inwhile to she where she is. She has not gotten a Life alert at this time. Lblslxuw-ut-ods is to be dealing with this. 11/06 Dr Ferraro ok'd her not to check blood sugars. She has appt with cardiology this week. 11/12 Doing OK-has an appt with the transfer station attendant from [place] Wednesday 11/15 to get approval for stent removal and stones removed. DM status quo. 11/20 Saw Life Coach on 11/15-needs a stress test before she can have the stints removed which she will have on Dec 04. then will have stones removed. Otherwise doing pretty good" Denies any chills or fevers. No changes in DM. 11/29 Etelvina doing "OK" Won't be doing much until after the stress test on 12/04 and labs at that time-then a FU with to determen how they will proceed. Also has an appt with the Cardiologit on 12/12 Denies any C/O Nausea, chills. Diabetes is doing fine-monitors meds and diet very closely" SHRUTI THOMPSON Nov 28, 2017 14:08
--- NOTE | 2017-12-05 14:32 | Transitional Care Management ---
Assessment Visit Type: Telephone Visit Cardiac: WNL Except Cardiac Comment: 10/06 feels a little shaky and weak. Review safety with ambulation if she is dizzy. BP's with [facility]. Little "puffy" in feet; enc exercising. Yesterday resumed spironolactone and lisinopril in hospital. 10/14 no weakness or shaky. 10/29 Dens CP at this time though is weak and shakey 10/21BP check at MD office 11/06 Still weak and skaky. BP has been a little low, Dr Ferraro aware. Respiratory: WNL Except Respiratory Comment: 10/06 Spouse states she is on .5L daytime and he turns her to 2 L at hs. She sleeps in recliner. 10/21 still wearing O2 as prescribed. doesn't think it has helped her think more clear or bemore energetic but is not sob 10/29 uses O2 24/7 2L at HS and 1/2 L during the day. Denies SOB at this time 12/05 Wearing O2 PRN per Dr Ferraro. She wears it part of the day, when she feels she needs it. GI: Nutrition: WNL GI Comment: 10/06 Had bs of 130, 104, 97, 78 in hospital. has resumed metformin bid. Enc to do BS at home and record results to show PCP at next visit. Spouse cooks and asked about DM diet specifics. Review they eat little bread but like rice and potatoes; "Plate method" reviewed. He cooks low fat meats, fish, skinless chicken. Will add vege to each meal. Don't like salt. Had formed bm yesterday in hospital. Enc to report new diarrhea as she was on mult atb in hospital 10/14 Blood sugars have been "good". 10/21 denies any diarrhea from atb. States they don't have a glucometer. Since she is only on metformin and A1C was only 6.8 enc. to ask PCP if they should be checking at home routinely 10/29 Diabetic diet not checking BS 11/06 Dr Ferraro ok'd her to not check her blood sugars. Constipation?: No : WNL Except Comment: 10/06 Almost total incont. Enc to go to bathroom q 2 hr to keep clean and dry. Review s/s UTI as she was septic in hospital. Enc 2 L fluids a day of water, crystal light not just coffee or gatorade 10/21 states toni gave her lots of crystal light and she likes most flavors. voiding lots in am after diuretic 10/29 voiding frequently. OR from DR Colbert for 10/28 was cancelled d/t she had not seen a [employer]. Having frequent BMS Musculoskeletal, Exercise: WNL Except Musculoskeletal, Excercise Com: 10/06 C with PT ordered. Enc to do exercise when commercials come on tv 10/14 C evaled last week, but has not been back. Bharat expects thier call today. 10/21 still weak and shaky. [facility] did eval upon dc Mobility/Falls: WNL Except Mobility Comment: 10/06 feels weak. Has approx same distance to bathroom in home as she did in hospital. Enc q 2 hr bathroom trips to stay dry. 10/29 uses WC mostly and walker some of the time in home as she is to weak and shakey to use walker 12/05 Strength and endurance improving. Integumentary: WNL Except Integumentary Comment: 10/06 Generalized rash on trunk and arms is dull red today; uses oint when itchy. Has nystat powder for reddened groin area. Has gold morgan DM cream and Eucerin for dry legs. Cellulitis of R great toe is less red. Spouse clipped toe nails today being careful not to knick the skin; inspect daily 10/14 Rash is much better. 10/29 Rash is improving-not as sosre and itchy 10/21 states skin is "peeling like crazy". had reddened skin in hospital over most of body. Enc more frequent trips to bathroom, q 2 hr , especially in am after diuretic Feeling of Well Being: WNL Except Feeling of Well Being Comment: 10/06 Review need for life alert type system as spouse working daily. He has applied for [employer] to work 3am to 9am daily. son in law states he will research this item on the internet. Spouse states she has had prehospital short term memory loss. 10/21 S-I-Ashley has not found life alert system yet; his (pt toni) is in hospital in [place] 11/06 No life alert. Socialization: WNL Except Socialization Comment: 10/06 suggested daughter come over when she is alone in house, when spouse is working. States she will have to come to let the dogs out when expecting [facility]. Scheduled Follow-Up with Soule[facility]: Yes (12/05 Cardiology appt 12/12) [facility] and never returned. Destinee at [facility] states they didn't want to "waste her visits..her insurance is stingy" and are coming Weds, did not come last week. usually call day beforeto schedule but she will call today to explain to them Questions for Future PCP Visit: 10/06 Resume amlodipine? Followup labs: low platelets, Mag, Kcl 10/21 check blood sugars at home. [facility] for PT Following Discharge Instructio: Yes TCM Discharge Criteria Medication Knowledge: 10/06 RX for levofloxacin filled and had first dose at home. Spouse admin her meds and has removed amlodipine from her regular daily meds. 10/[address] Corrales started Mag supp Disease Management/Concern/Wha: 10/06 UTI, DM Transitional Care Comment: 10/03 must choose [facility] for $25 a visit. Has brochures and will discuss with spouse. Forgetful and admits difficulty with word find occasionally. Wants to be more active at home with dogs, get back to her reading and her knitting. States she has her chair that she sleeps in, bathroom and kitchen on one level. has bar in bathroom and no steps to enter home. 10/06 Has spouse in home and toni down the street. Enc their presence so she is not alone as is a high fall risk with her short term memory. Needs enc. to go to q 2 hr, do exercises, supervision with meds, enc fluids, keeping O2 on, skin care. 10/11 unable to contact -left message 10/12 unable to contact 10/14 I spoke with Bharat, her . She is feeling at her baseline, Blood sugars "good". They are awaiting a relpy from [facility] about the services they will provide. Appt with Dr Colbert 10/28 about her kidney stone. 10/21 Still weak but skin better and getting around the same. Using O2 as rx. no check bp to eval need for restarting amlodipine. Called [facility] re: ordered services. 10/29 Did not have OR per Dr Colbert yesterday d/t she had not seen a [employer]. Enc her to get an appt chloe so she could het the OR. She also needs to FU w Dr Ferraro. I asked her to TT Dr Ferraro about ordering her aGlucometer and getting one at [facility] in order to check BS once inwhile to she where she is. She has not gotten a Life alert at this time. [id number]-xpt is to be dealing with this. 11/06 Dr Ferraro ok'd her not to check blood sugars. She has appt with cardiology this week. 11/12 Doing OK-has an appt with the paper latcher from [place] to get approval for stent removal and stones removed. DM status quo. 11/20 Saw [employer] Associate on 11/15-needs a stress test before she can have the stints removed which she will have on Dec 04. then will have stones removed. Otherwise doing pretty good" Denies any chills or fevers. No changes in DM. 11/29 Etelvina doing "OK" Won't be doing much until after the stress test on 12/04 and labs at that time-then a FU with to determen how they will proceed. Also has an appt with the Cardiologit on 12/12 Denies any C/O Nausea, chills. Diabetes is doing fine-monitors meds and diet very closely" 12/05 Had her stress test yesterday. Cardiology F/U 12/12. She is wearing O2 PRN, getting stronger, tolerating activity more. Copies to: RELL CORRALES MD ; JAY COLBERT Dec 05, 2017 14:32
== END 2017-12-09 01:00 | disposition expired ==
LOC: TCM 16:34
PROVIDERS: ATTEND Nurse Practitioner
DX: Z02.9 Encounter for administrative examinations, unspecified (principal)

== ENCOUNTER → 2017-10-10 | Outpatient (CLI) | payer BC, MEDICARE, OTHER ==
[~2017-10-10] MED LIST changes: -AMLO-113 PO; +AMLO-99 PO; +LEVO750T27 PO; +MAGN400C PO; +MAGN400T36 PO; +METF-411 PO; -METF-450 PO; +OXYGENHOME INH; +SULF1TAB24 PO
== END ==
LOC: LAB 15:44
PROVIDERS: ATTEND Internal Medicine
DX: E87.6 Hypokalemia (principal); N17.9 Acute kidney failure, unspecified; E83.42 Hypomagnesemia
CPT/HCPCS: 36415; 82310; 82374; 82435; 82565; 82947; 83735; 84132; 84295; 84520

== ENCOUNTER → 2017-10-17 | Outpatient (CLI) | payer BC, MEDICARE, OTHER ==
[2017-10-17 09:07] LABS: PLATELET COUNT, AUTOMATED 238 K/uL (150-450)
== END ==
LOC: LAB 08:50
PROVIDERS: ATTEND Internal Medicine
DX: E83.42 Hypomagnesemia (principal); I10 Essential (primary) hypertension; E11.40 Type 2 diabetes mellitus with diabetic neuropathy, unspecified; R53.82 Chronic fatigue, unspecified
CPT/HCPCS: 36415; 82310; 82374; 82435; 82565; 82947; 83735; 84132; 84295; 84520; 85025

== ENCOUNTER → 2017-10-28 | Day surgery (SDC) | payer BC, MEDICARE, OTHER ==
[~2017-10-28] VITALS: Ht 170.2 cm; Wt 127.0 kg
[~2017-10-28] MED LIST changes: +FAMOTIDINE 20 MG TAB PO ONE; +GENTAMICIN(*) 80 MG/2 ML VIAL 160 MG in NS(*) 0.9% 100 ML BAG 100 ML IVPB ONE; +LIDOCAINE/SOD BICARB 8.4% SYR ID ONE; +MIDAZOLAM 2 MG/2 ML VIAL IVP PRN; +NORMOSOL R SOLN(*) 1000 ML BAG 1,000 ML IV PRN; +cefTRIAXone(*) 2 GM VIAL 2 GM in NS(*) 0.9% 100 ML ADDVANT BAG 100 ML IVPB ONE
== END ==
LOC: OR 05:36
DX: Z02.9 Encounter for administrative examinations, unspecified (principal)

== ENCOUNTER → 2017-12-04 | Outpatient (CLI) | payer BC, MEDICARE, OTHER ==
[~2017-12-04] MED LIST changes: +AMLO-113 PO; -AMLO-99 PO; -FAMOTIDINE 20 MG TAB PO ONE; -GENTAMICIN(*) 80 MG/2 ML VIAL 160 MG in NS(*) 0.9% 100 ML BAG 100 ML IVPB ONE; -LIDOCAINE/SOD BICARB 8.4% SYR ID ONE; -METF-411 PO; +METF-450 PO; -MIDAZOLAM 2 MG/2 ML VIAL IVP PRN; -NORMOSOL R SOLN(*) 1000 ML BAG 1,000 ML IV PRN; +REGADENOSON 0.4 MG/5 ML SYR ONE; -cefTRIAXone(*) 2 GM VIAL 2 GM in NS(*) 0.9% 100 ML ADDVANT BAG 100 ML IVPB ONE
--- NOTE | 2017-12-05 07:32 | RT STRESS TEST REPORT ---
FACILITY: [facility] PATIENT NAME: SHYAM ROBERT : [id number] MR: [id number] V: [id number] EXAM DATE: ORDERING PHYSICIAN: NEIL SELF TECHNOLOGIST: Stefano Acquisition Time: 2017-12-04 14:24:37 Total Exercise Time: 00:01:00 Test Indications: Syncope Medications: Protocol: LEXISCAN Max HR: 116 BPM 76% of Pred: 151 BPM Max BP: 130/071 mmHG Max Work Load: 1.0 METS Good quality study Mild increase in heart rate after infusion. Baseline EKG has left bundle branch block which makes interpretation inaccurate, images pending. Confirmed by Ajit Negrete ([id number]) on 12/05/2017 7:31:52 AM Referred By: Overread By: Ajit Beyer
--- NOTE | 2017-12-05 12:22 | RADIOLOGY IMAGING REPORT ---
FACILITY: [facility] PATIENT NAME: Etelvina Salazar : 1950 MR: [id number] V: [id number] EXAM DATE: ORDERING PHYSICIAN: ALEXEY PRESSLEY TECHNOLOGIST: Location: [facility] Patient: Etelvina Salazar : 1950 Visit/Account:[id number] Date of Sevice: 12/04/2017 REGADENOSON (LEXISCAN) MYOCARDIAL PERFUSION IMAGING. EXAMINATION: Single isotope SPECT imaging with regadenoson infusion and gated SPECT imaging. DATE OF EXAMINATION: December 04, 2017. REQUESTING PHYSICIAN:HUAN INDICATION: Shortness of breath PROCEDURE: After informed consent the patient received an intravenous injection of Tc-99m sestamibi followed at an appropriate time interval by rest imaging. The patient then subsequently received an intravenous infusion of 0.4 mg of regadenoson per protocol without complication. Resting heart rate was 89 bpm with a peak heart rate of 112 bpm. Blood pressure at rest was 130/71 and following infus ion was 121/83 . Baseline EKG demonstrates sinus rhythm with left bundle branch block. There were n o EKG changes of ischemia following infusion. Non-specific symptoms were reported. The patient then received an intravenous injection of Tc-99m sestamibi followed by stress imaging. DOSE of Tc-99m sestamibi (mCi): REST: 14.5 STRESS: 29.4 RAW DATA: Examination of the summed raw data revealed a excellent quality study. MYOCARDIAL PERFUSION: The tomographic images demonstrate normal myocardial perfusion study without e vidence of myocardial ischemia or infarct. GATED IMAGES: The gated images demonstrate abnormal septal wall motion related to left bundle-branch block with normal LV systolic performance with LVEF 80%. IMPRESSION: 1. Nondiagnostic ECG portion of Lexiscan stress test. Left Bundle-branch block noted throughout the study 2. Normal myocardial perfusion study without evidence of myocardial ischemia or infarct. 3. Normal LV systolic performance with LVEF 80% with abnormal septal wall motion related to left bund le-branch block. Report Dictated By: Tomas Jackson at 12/05/2017 12:13 PM Report E-Signed By: Tomas Jackson at 12/05/2017 12:17 PM WSN:[id number]
== END ==
LOC: NUC 01:47
PROVIDERS: ATTEND Internal Medicine Cardiovascular Disease
DX: I44.7 Left bundle-branch block, unspecified (principal)
CPT/HCPCS: 36415; 78452; 93017; A9500; J2785; 82465; 83718; 84478

== ENCOUNTER → 2017-12-09 | Outpatient (CLI) | payer BC, MEDICARE, OTHER ==
[~2017-12-09] MED LIST changes: -REGADENOSON 0.4 MG/5 ML SYR ONE
== END ==
LOC: AMB 05:07
PROVIDERS: ATTEND Nurse Practitioner
DX: I46.9 Cardiac arrest, cause unspecified (principal)
CPT/HCPCS: A0998